=== PATIENT | male | born 1975 | race Caucasian/White ===

== ENCOUNTER 2019-01-13 20:27 | Emergency (ER) | payer OTHER ==
[2019-01-13 20:51] VITALS: TEMP 98.3
[2019-01-13 21:17] LABS: Basophils % (A) 0 %; Eosinophils # (A) 0.2 k/uL (0-0.7); Eosinophils % (A) 3 %; HCT 47.7 % (39.0-53.0); HGB 16.4 gm/dL (13.0-17.5); Lymphocytes # (A) 1.7 k/uL (1.0-4.8); Lymphocytes % (A) 21 %; MCH 30.7 pg (25.0-35.0); MCHC 34.3 g/dL (31.0-37.0); MCV 89.5 fL (80.0-100.0); Mean Platelet Volume 6.6; Monocytes # (A) 0.4 k/uL (0-1.0); Monocytes % (A) 5 %; Neutrophils # (A) 5.6 k/uL (1.3-7.7); Neutrophils % (A) 69 %; Platelet Count 218 k/uL (150-450); RBC 5.33 m/uL (4.30-5.90); RDW 12.3 % (11.5-15.5); WBC 8.2 k/uL (3.8-10.6)
[2019-01-13 21:18] LABS: Appearance,Urine Clear (Clear); Bilirubin,Urine Negative (Negative); Blood,Urine Negative (Negative); Color,Urine Light Yellow; Glucose,Urine (UA) Negative (Negative); Ketones,Urine Negative (Negative); Leukocyte Esterase,Urine Negative (Negative); Nitrite,Urine Negative (Negative); Protein,Urine Negative (Negative); Specific Gravity,Urine 1.006 (1.001-1.035); Urobilinogen,Urine <2.0 mg/dL (<2.0)
[2019-01-13 21:31] LABS: African American GFR (CKD) >90 (>60 ml/min/1.73 sqM); Anion Gap 12 mmol/L; Blood Urea Nitrogen 17 mg/dL (9-20); Calcium 9.9 mg/dL (8.4-10.2); Carbon Dioxide 25 mmol/L (22-30); Chloride 104 mmol/L (98-107); Glucose 141 mg/dL (74-99); Potassium 3.5 mmol/L (3.5-5.1); Sodium 141 mmol/L (137-145)
--- NOTE | 2019-01-13 22:32 | US ---
EXAMINATION TYPE: US scrotum with doppler. Grayscale and color Doppler Duplex imaging performed of the scrotum. DATE OF EXAM: 01/13/2019 COMPARISON: NONE CLINICAL HISTORY: Pain. Pain and swelling left testicle EXAM MEASUREMENTS: TESTICLES: Right Testicle: 5.0 x 2.0 x 3.4 cm Left Testicle: 5.1 x 3.3 x 4.4 cm EPIDIDYMIS HEAD: Right Epididymis: 0.9 cm Left Epididymis: 1.3 cm Doppler performed to assess for testicular vascularity; good bilateral color flow and waveforms are seen. There is no evidence of testicular torsion. Presence of hydroceles: No Presence of varicoceles: No Within the left testicle, there appears to be a hypoechoic vascular mass visualized measuring 4.8 x 3.1 x 4.0 cm. There also appears to be a scrotal genesis measuring 0.7 cm. IMPRESSION: Large hypoechoic vascular mass within the left testis measured 4.8 cm concerning for neoplasm.
--- NOTE | 2019-01-13 23:21 | ED ---
Male Urogenital HPI - General Source: patient Mode of arrival: ambulatory Limitations: no limitations <Yael Burnett - Last Filed: 01/13/19 23:56> <Yenifer Parada - Last Filed: 01/14/19 22:22> - General Chief complaint: Urogenital Stated complaint: Testicular Swelling Time Seen by Provider: 01/13/19 20:57 - History of Present Illness Initial comments: 43-year-old male presents today for chief complaint of left testicular pain. Patient states she has had this pain on and off for the past few years. He st ates has been increasing for the past 2 weeks. He states that he noticed that his left testicle is more swollen than the right for the past 2 weeks. Patient states she was concerned that there is a possible mass. Patient denies any chest pains shorts breath or recent weight loss. Patient has a color changes of the scrotum fever or chills night sweats dysuria urgency frequency or hematuria. Patient states that he was evaluated outpatient by provider who gave patient outpatient urology follow-up. He states he was unable to get an appointment yet and presents emergency department for second opinion. Remaining ROS (-). Upon arrival patient appears well no signs of acute distress. HR elevated patient states he is anxious about he visit. (Yael Burnett) - Related Data Previous Rx's Medication Instructions Recorded Acetaminophen with Codeine 1 tab PO Q6H PRN 3 Days #12 tab 01/13/19 [Tylenol w/codeine #3] Allergies Allergy/AdvReac Type Severity Reaction Status Date / Time No Known Allergies Allergy Verified 01/13/19 21:54 Review of Systems ROS Other: All systems not noted in ROS Statement are negative. <Yael Burnett - Last Filed: 01/13/19 23:56> ROS Other: All systems not noted in ROS Statement are negative. <Yenifer Parada - Last Filed: 01/14/19 22:22> ROS Statement: Those systems with pertinent positive or pertinent negative responses have been documented in the HPI. Past Medical History Past Medical History: No Reported History History of Any Multi-Drug Resistant Organisms: None Reported Additional Past Surgical History / Comment(s): nasal sx Past Psychological History: No Psychological Hx Reported Smoking Status: Never smoker Past Alcohol Use History: Occasional Past Drug Use History: None Reported <HortenciaMarcelinaYael L - Last Filed: 01/13/19 23:56> General Exam Limitations: no limitations <Yael Burnett - Last Filed: 01/13/19 23:56> - General Exam Comments Initial Comments: General: The patient is awake and alert, in no distress, and does not appear acutely ill. Eye: Pupils are equal, round and reactive to light, extra-ocular movements are intact. No nystagmus. There is normal conjunctiva bilaterally. No signs of icterus. Ears, nose, mouth and throat: There are moist mucous membranes and no oral lesions. Neck: The neck is supple, there is no tenderness or JVD. Cardiovascular: There is a regular rate and rhythm. No murmur, rub or gallop is appreciated. Respiratory: Lungs are clear to auscultation, respirations are non-labored, breath sounds are equal. No wheezes, stridor, rales, or rhonchi. Gastrointestinal: Soft, non-distended, non-tender abdomen without masses or organomegaly noted. There is no rebound or guarding present. No CVA tenderness. Bowel sounds are unremarkable. Physical exam reveals for clot. Slight swelling of the left testicle appears with the right. No erythema. No tenderness palpation at the epididymis. Patient has no evidence of varicocele. No obvious palpable mass. Musculoskeletal: Normal ROM, no tenderness. Strength 5/5. Sensation intact. Pulses equal bilaterally 2+. Neurological: A&O x 3. CN II-XII intact, There are no obvious motor or sensory deficits. Coordination appears grossly intact. Speech is normal. Skin: Skin is warm and dry and no rashes or lesions are noted. Psychiatric: Cooperative, appropriate mood & affect, normal judgment. (Yael Burnett) Course Vital Signs 01/13/19 01/13/19 20:46 23:33 Temperature 98.3 F Pulse Rate 115 H 86 Respiratory 20 18 Rate Blood Pressure 175/85 155/74 O2 Sat by Pulse 98 100 Oximetry Medical Decision Making - Lab Data Result diagrams: 01/13/19 21:06 01/13/19 21:06 <aYel Burnett - Last Filed: 01/13/19 23:56> - Lab Data Result diagrams: 01/13/19 21:06 01/13/19 21:06 <Yenifer Parada - Last Filed: 01/14/19 22:22> - Medical Decision Making 43-year-old male presented for left testicular swelling. Ultrasound revealed a testicular mass concerning for possible neoplasm. No evidence of epididymitis hydrocele or varicocele. Patient left wrist that is unremarkable. Urinalysis within normal limits. No evidence of infection. She denies any urinary symptoms. I discussed this finding with patient with concern for possible malignancy versus benign testicular mass. Patient verbalized an understanding of the importance of follow-up with urology. I recommended biopsy. Return parameters were discussed at length the patient. Patient was provided RX for pain medication outpatient. He was aware of the use, risks involvement taking Tylenol No. 3. At this time after discussed the case with attending provider Dr. Parada we for patient stable for discharge with outpatient follow-up as discussed. (Yael Burnett) I was available for consultation in the emergency department. The history and physical exam were done by the midlevel provider. I was consulted for this patient's care. I reviewed the case with the midlevel provider and based on their presentation of the patient, I agree with the assessment, medical decision making and plan of care as documented. Chart was dictated using [employer] dictation software. Attempts were made to correct any dictation errors however some typographical errors may persist. (Yenifer Parada) - Lab Data Lab Results 01/13/19 01/13/19 01/13/19 Range/Units 21:06 21:06 21:06 WBC 8.2 (3.8-10.6) k/uL RBC 5.33 (4.30-5.90) m/uL Hgb 16.4 (13.0-17.5) gm/dL Hct 47.7 (39.0-53.0) % MCV 89.5 (80.0-100.0) fL MCH 30.7 (25.0-35.0) pg MCHC 34.3 (31.0-37.0) g/dL RDW 12.3 (11.5-15.5) % Plt Count 218 (150-450) k/uL Neutrophils % 69 % Lymphocytes % 21 % Monocytes % 5 % Eosinophils % 3 % Basophils % 0 % Neutrophils # 5.6 (1.3-7.7) k/uL Lymphocytes # 1.7 (1.0-4.8) k/uL Monocytes # 0.4 (0-1.0) k/uL Eosinophils # 0.2 (0-0.7) k/uL Basophils # 0.0 (0-0.2) k/uL Sodium 141 (137-145) mmol/L Potassium 3.5 (3.5-5.1) mmol/L Chloride 104 (98-107) mmol/L Carbon Dioxide 25 (22-30) mmol/L Anion Gap 12 mmol/L BUN 17 (9-20) mg/dL Creatinine 0.93 (0.66-1.25) mg/dL Est GFR (CKD-EPI)AfAm >90 (>60 ml/min/1.73 sqM) Est GFR (CKD-EPI)NonAf >90 (>60 ml/min/1.73 sqM) Glucose 141 H (74-99) mg/dL Calcium 9.9 (8.4-10.2) mg/dL Urine Color Light Yellow Urine Appearance Clear (Clear) Urine pH 6.0 (5.0-8.0) Ur Specific [place] 1.006 (1.001-1.035) Urine Protein Negative (Negative) Urine Glucose (UA) Negative (Negative) Urine Ketones Negative (Negative) Urine Blood Negative (Negative) Urine Nitrite Negative (Negative) Urine Bilirubin Negative (Negative) Urine Urobilinogen <2.0 (<2.0) mg/dL Ur Leukocyte Esterase Negative (Negative) Disposition Is patient prescribed a controlled substance at d/c from ED?: No Time of Disposition: 23:20 <Yael Burnett L - Last Filed: 01/13/19 23:56> <Yenifer Parada P - Last Filed: 01/14/19 22:22> Clinical Impression: Testicular swelling, left, Left testicular pain, Mass of left testicle Disposition: HOME SELF-CARE Condition: Good Instructions (If sedation given, give patient instructions): Testicle Pain (ED) Additional Instructions: Please use medication as discussed. Please follow-up with urology in the next 2-3 days. Please return to emergency room if the symptoms increase or worsen or for any other concerns. Prescriptions: Acetaminophen with Codeine [Tylenol w/codeine #3] 1 tab PO Q6H PRN 3 Days #12 tab PRN Reason: Severe Pain Referrals: None,Stated [Primary Care Provider] - 1-2 days London Manning MD [STAFF PHYSICIAN] - 1-2 days
[2019-01-13] MEDS ORDERED: ALPRAZolam 0.5 MG TAB PO STA (23:26)
[2019-01-13 23:36] VITALS: BP 155/74; PULSE 86; RESP 18
== END 2019-01-13 23:43 | disposition home or self-care (01) ==
LOC: EC 20:27
DX: N50.89 Other specified disorders of the male genital organs (principal); N50.812 Left testicular pain; R00.0 Tachycardia, unspecified
CPT/HCPCS: 36415; 76870; 80048; 81003; 85025; 93975; 99284

== ENCOUNTER → 2019-02-10 | Outpatient (CLI) | payer OTHER ==
--- NOTE | 2019-02-11 21:48 | CT ---
EXAMINATION TYPE: CT abdomen pelvis w con DATE OF EXAM: 02/10/2019 COMPARISON: None this location. INDICATION: testicular ca DLP: 1154 mGycm, Automated exposure control for dose reduction was used. CONTRAST: 100 mL of Isovue 300. Study performed with Oral Contrast TECHNIQUE: Axial images were obtained from above the diaphragm to the pubic rami in the axial plane a t 5 mm thick sections. Reconstructed images are reviewed on the computer in the coronal plane. FINDINGS: Limited CT sections are obtained the lung bases. The lung bases are clear. CT ABDOMEN: Liver: Normal Spleen: Normal Pancreas: Normal Adrenal glands: The adrenal glands are normal. Gallbladder: Normal Kidneys: No masses are evident. No hydronephrosis is present. No cysts are present. Delayed images were obtained through the kidneys, which remain unremarkable. Aorta: Vascular calcification is within the aorta. Inferior vena cava: Normal. Lymphadenopathy: There is a few shoddy nodes in the periaortic region bel ow the level of the renal veins. Enlarged suspicious adenopathy is not evident CT PELVIS: Loops of bowel within the abdomen and pelvis are normal. There are loops of bowel which are incom pletely distended or lack oral contrast limiting their evaluation. Appendix: Somewhat enlarged 0.9 cm which can be normal. Otherwise appendix is Normal as visualized. N o suspicious inflammatory changes are adjacent. Urinary bladder: Normal. Genitourinary structures: Prostate is unremarkable. Osseous structures: No suspicious lytic or sclerotic lesions. IMPRESSIONS: 1. No suspicious changes to suggest metastatic disease.
== END | disposition home or self-care (01) ==
LOC: RADCTMAIN 15:58
PROVIDERS: ATTEND Urology
DX: Z08 Encounter for follow-up examination after completed treatment for malignant neoplasm (principal); Z90.79 Acquired absence of other genital organ(s); Z85.47 Personal history of malignant neoplasm of testis
CPT/HCPCS: 74177; Q9967

== ENCOUNTER 2019-03-27 17:07 | Emergency (ER) | payer OTHER ==
[2019-03-27 17:22] VITALS: TEMP 98.2
[2019-03-27 20:55] LABS: Appearance,Urine Clear (Clear); Bilirubin,Urine Negative (Negative); Blood,Urine Negative (Negative); Color,Urine Yellow; Glucose,Urine (UA) Negative (Negative); Ketones,Urine 1+ (Negative); Leukocyte Esterase,Urine Negative (Negative); Nitrite,Urine Negative (Negative); Protein,Urine Negative (Negative); Specific Gravity,Urine 1.018 (1.001-1.035); Urobilinogen,Urine <2.0 mg/dL (<2.0)
--- NOTE | 2019-03-27 21:01 | ED ---
General Adult HPI - General Chief complaint: Extremity Injury, Lower Stated complaint: pain in right groin Time Seen by Provider: 03/27/19 20:17 Source: patient Mode of arrival: ambulatory Limitations: no limitations - History of Present Illness Initial comments: 43-year-old male patient with past medical history significant for left sided testicular cancer presents to the emergency department today for evaluation of right groin pain. Patient states he's had the pain on and off for the last week. Patient states this seems to worsen when he is working. 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 Patient denies any hematuria, dysuria, urinary frequency, urinary urgency. Denies any abdominal pain, nausea, or vomiting. States he is having normal bowel movements with no hematochezia or melena. Patient denies any penile discharge, fever, or chills. Denies any known injury. Patient denies any recent rash, shortness breath, chest pain, back pain, numbness, tingling, dizziness, weakness, headache, visual changes, or any other complaints. - Related Data Home Medications Medication Instructions Recorded Confirmed Ibuprofen [Motrin Ib] 800 mg PO ONCE PRN 03/27/19 03/27/19 Allergies Allergy/AdvReac Type Severity Reaction Status Date / Time No Known Allergies Allergy Verified 03/27/19 20:19 Review of Systems ROS Statement: Those systems with pertinent positive or pertinent negative responses have been documented in the HPI. ROS Other: All systems not noted in ROS Statement are negative. Past Medical History Past Medical History: No Reported History, Cancer Additional Past Medical History / Comment(s): testicle CA History of Any Multi-Drug Resistant Organisms: None Reported Additional Past Surgical History / Comment(s): nasal sx, L testicle removed Past Psychological History: No Psychological Hx Reported Smoking Status: Never smoker Past Alcohol Use History: Occasional Past Drug Use History: None Reported General Exam Limitations: no limitations General appearance: alert, in no apparent distress, other (This is a well- developed, well-nourished adult male patient in no acute distress. Vital signs upon presentation are temperature 98.2F, pulse 127, respirations 18, blood pressure 160/102, pulse ox 98% on room air.) Eye exam: Present: normal appearance, PERRL, EOMI. Absent: scleral icterus, conjunctival injection, periorbital swelling ENT exam: Present: normal exam, normal oropharynx, mucous membranes moist Respiratory exam: Present: normal lung sounds bilaterally. Absent: respiratory distress, wheezes, rales, rhonchi, stridor Cardiovascular Exam: Present: regular rate, normal rhythm, normal heart sounds. Absent: systolic murmur, diastolic murmur, rubs, gallop, clicks GI/Abdominal exam: Present: soft, normal bowel sounds. Absent: distended, tenderness, guarding, rebound, rigid, hernia exam: Present: normal inspection. Absent: testicular tenderness, urethral discharge, scrotal swelling Neurological exam: Present: alert, oriented X3, CN II-XII intact Psychiatric exam: Present: normal affect, normal mood Skin exam: Present: warm, dry, intact, normal color. Absent: rash Course Vital Signs 03/27/19 03/27/19 17:17 21:23 Temperature 98.2 F Pulse Rate 127 H 100 Respiratory 18 14 Rate Blood Pressure 160/102 156/95 O2 Sat by Pulse 98 98 Oximetry Medical Decision Making - Medical Decision Making 43-year-old male patient presented to the emergency department today for evaluation of right groin pain. Physical examination revealed no tenderness, swelling, or other abnormalities. Urinalysis showed 2+ ketones but no other abnormalities. Ultrasound of the right groin and showed him which are unremarkable except for a 3 mm right epididymal cyst. I did discuss findings and results with the patient. We discussed possible strain as a cause for his symptoms. He does have an appointment with his urologist this week. He is instructed to follow-up with his primary care physician for recheck in 1-2 days. Return parameters were discussed in detail. He verbalizes understanding and agrees this plan. - Lab Data Lab Results 03/27/19 Range/Units 20:43 Urine Color Yellow Urine Appearance Clear (Clear) Urine pH 7.0 (5.0-8.0) Ur Specific [place] 1.018 (1.001-1.035) Urine Protein Negative (Negative) Urine Glucose (UA) Negative (Negative) Urine Ketones 1+ H (Negative) Urine Blood Negative (Negative) Urine Nitrite Negative (Negative) Urine Bilirubin Negative (Negative) Urine Urobilinogen <2.0 (<2.0) mg/dL Ur Leukocyte Esterase Negative (Negative) - Radiology Data Radiology results: report reviewed, image reviewed Ultrasound of the scrotum was obtained. Report reviewed in its entirety. Impression by Dr. Delgado shows no evidence of testicular torsion or mass. No significant free fluid. Small epididymal 3 mm cyst. Ultrasound of the right groin is obtained. Report was reviewed in its entirety. Impression by Dr. Delgado shows few ordinary appearing right inguinal lymph nodes. Disposition Clinical Impression: Right groin pain, Epididymal cyst Disposition: HOME SELF-CARE Condition: Good Instructions (If sedation given, give patient instructions): Groin Pain (ED) Additional Instructions: Take Tylenol and Motrin for pain control. Follow-up with your urologist as you have planned. Follow up with her primary care physician for recheck in 1-2 days. Return to the emergency department immediately for any new, worsening, or concerning symptoms. Is patient prescribed a controlled substance at d/c from ED?: No Referrals: Thanh Desouza MD [STAFF PHYSICIAN] - 1-2 days Time of Disposition: 22:02
[2019-03-27 21:24] VITALS: RESP 14
--- NOTE | 2019-03-27 21:35 | US ---
EXAMINATION TYPE: US scrotum with doppler. Grayscale and color Doppler Duplex imaging performed of maycol colon scrotum. DATE OF EXAM: 03/27/2019 COMPARISON: US, CT CLINICAL HISTORY: Pain. Pain right groin/testicle x 1.5 weeks. Hx left testicle removed 3 months ago. Hx testicular cancer. EXAM MEASUREMENTS: TESTICLES: Right Testicle: 4.7 x 3.2 x 2.8 cm Left Testicle: Removed EPIDIDYMIS HEAD: Right Epididymis: 1.2 x 1.1 x 0.7 cm Anechoic area seen measurin.3 x 0.4 x 0.3 cm. Doppler performed to assess for testicular vascularity; good right-sided color flow and waveforms are seen. There is no evidence of testicular torsion. Presence of hydroceles: Small amount of anechoic fluid seen near epididymal head. Presence of varicoceles: none seen ?Hypoechoic area right lower testicle appears to be part of epididymal tail? Color Doppler shown. Ind istinct area was not measured. IMPRESSION: No evidence of testicular torsion or mass. No significant free fluid. Small epididymal 3 mm cyst.
--- NOTE | 2019-03-27 21:36 | US ---
EXAMINATION TYPE: US groin RT DATE OF EXAM: 03/27/2019 COMPARISON: US CLINICAL HISTORY: Pain. Pain right groin x 1.5 weeks. Hx left testicle removed. Hx testicular cancer. Multiple hypoechoic areas with hyperechoic centers and vascularity seen in the right groin. Largest measured. #1 measures: 1.2 x 1.3 x 0.6 cm. #2 measures: 1.3 x 0.7 x 0.4 cm. IMPRESSION: There are a few ordinary appearing right inguinal lymph nodes.
[2019-03-27 22:19] VITALS: BP 148/90; PULSE 90
== END 2019-03-27 22:09 | disposition home or self-care (01) ==
LOC: EC 17:07
DX: N50.3 Cyst of epididymis (principal); Z85.47 Personal history of malignant neoplasm of testis
CPT/HCPCS: 76870; 81003; 93975; 93976; 99284

== ENCOUNTER → 2019-04-18 | Outpatient (CLI) | payer OTHER ==
--- NOTE | 2019-04-18 13:24 | CT ---
EXAMINATION TYPE: CT abdomen pelvis wo/w con DATE OF EXAM: 04/18/2019 COMPARISON: 02/10/2019 HISTORY: 43-year-old male Testicular cancer TECHNIQUE: Contiguous axial scanning of the abdomen and pelvis before and after administration of 100 ml Isovue 300 IV contrast. Delayed images through the kidneys and coronal/sagittal reconstructions performed. CT DLP: 1981 mGycm Automated exposure control for dose reduction was used. FINDINGS: Heart normal size without pericardial effusion. Lung bases clear without pleural effusion. No focal liver lesion or biliary ductal dilatation. Portal venous system is patent. Gallbladder, adrenal glands, right kidney, spleen, and pancreas appear within normal limits. Subcentimeter hypodensity lateral left kidney too small fractured CT characterization, probable cyst. 8mm left periaortic retroperitoneal lymph node, axial image 35 is unchanged. Prominent 6 mm mid mesen teric lymph node anterior to the aortic bifurcation, axial image 48 is unchanged. No dilated small bowel, free fluid, or free air. Stable borderline thickened appendix likely normal variation. No surrounding inflammatory change. Oral contrast progressed to the rectosigmoid junction. No pericolonic inflammatory change. Bladder is urine distended. Resting gland measures 4.8 cm wide. No abnormal fluid collection in the p leatha or pelvic lymphadenopathy. Some scarring along the left inguinal region and prior left orchiect erin. Bones: No osseous destructive process. Degenerative disc disease L5-S1. IMPRESSION: 1. A COUPLE BORDERLINE SIZED LYMPH NODES IN THE ABDOMEN (LEFT PARA-AORTIC AND MID MESENTERIC) ARE STA BLE FOR 2 MONTHS MEASURING UP TO 8 MM. ADDITIONAL FOLLOW-UP IF CLINICALLY INDICATED. 2. POST SURGICAL CHANGES OF LEFT ORCHIECTOMY. OTHERWISE, NO OTHER EVIDENCE FOR METASTATIC DISEASE.
== END | disposition home or self-care (01) ==
LOC: RADCTMAIN 09:34
PROVIDERS: ATTEND Radiology Radiation Oncology
DX: R22.2 Localized swelling, mass and lump, trunk (principal); C62.12 Malignant neoplasm of descended left testis; Z98.890 Other specified postprocedural states
CPT/HCPCS: 74178; Q9967

== ENCOUNTER → 2019-08-18 | Outpatient (CLI) | payer OTHER ==
--- NOTE | 2019-08-18 12:33 | XR ---
EXAMINATION TYPE: XR chest 2V DATE OF EXAM: 08/18/2019 COMPARISON: NONE HISTORY: Testicular cancer. TECHNIQUE: Frontal and lateral views of the chest are obtained. FINDINGS: There is no focal air space opacity, pleural effusion, or pneumothorax seen. The cardiac silhouette size is within normal limits. The osseous structures are intact. Minimal multilevel dege nerative change of the spine. IMPRESSION: No acute cardiopulmonary process.
--- NOTE | 2019-08-18 16:38 | CT ---
EXAMINATION TYPE: CT abdomen pelvis w con DATE OF EXAM: 08/18/2019 COMPARISON: 04/18/2019 INDICATION: Follow up testicular cancer. DLP: 678.4 mGycm, Automated exposure control for dose reduction was used. CONTRAST: 100 mL of Isovue 300. Study performed with Oral Contrast TECHNIQUE: Axial images were obtained from above the diaphragm to the pubic rami in the axial plane a t 5 mm thick sections. Reconstructed images are reviewed on the computer in the coronal plane. FINDINGS: Limited CT sections are obtained the lung bases. The lung bases are clear. CT ABDOMEN: Liver: Normal Spleen: Normal Pancreas: Normal Adrenal glands: The adrenal glands are normal. Gallbladder: Normal Kidneys: No masses are evident. No hydronephrosis is present. Small cortical renal cyst on the left Delayed images were obtained through the kidneys, which remain unremarkable. Aorta: Normal Inferior vena cava: Normal. CT PELVIS: Loops of bowel within the abdomen and pelvis are normal. Diverticular changes within the sigmoid colo n. There are loops of bowel which are incompletely distended or lack oral contrast limiting their evaluation. Appendix: Not visualized measures 0.9 cm however, no suspicious adjacent inflammatory change.. Urinary bladder: Normal. Genitourinary structures: Prostate is prominent Osseous structures: No suspicious lytic or sclerotic lesions. Lymph nodes: There is a 0.9 cm lymph node near the level of the renal veins, stable from comparison. Image 33 series 3 couple of additional smaller shotty lymph nodes are present similar appearance to p rior study IMPRESSIONS: 1. Diverticulosis without acute diverticulitis. 2. Prominent prostate. 3. Prominent but otherwise normal-appearing appendix. 4. No suspicious interval changes to suggest metastatic testicular cancer.
== END | disposition home or self-care (01) ==
LOC: RADCTMAIN 10:38
PROVIDERS: ATTEND Urology
DX: C62.12 Malignant neoplasm of descended left testis (principal); K57.30 Diverticulosis of large intestine without perforation or abscess without bleeding
CPT/HCPCS: 71046; 74177; Q9967 ×2

== ENCOUNTER 2019-08-28 09:14 | Day surgery (SDC) | payer OTHER ==
[~2019-08-28 09:14] MED LIST: LACTATED RINGERS 1,000 ML IV SCH
[2019-08-28 09:35] VITALS: RESP 16; TEMP 98.1
[2019-08-28] MEDS: LACTATED RINGERS 1,000 ML IV SCH ×2 (09:38→09:58)
[2019-08-28] MEDS ORDERED: LIDOCAINE 1% 20 ML VIAL (10MG/ML) FOR IV START INTRADERMA ONE (09:39)
[2019-08-28] MEDS ORDERED: fentaNYL (PF) 50 MCG/ML 2 ML AMP ONE (09:59)
[2019-08-28] MEDS ORDERED: PROPOFOL 10 MG/ML 20 ML VIAL IV ONE (09:59)
[2019-08-28] MEDS ORDERED: MIDAZOLAM 2 MG/2 ML VIAL ONE (09:59)
--- NOTE | 2019-08-28 10:31 | P.PCN ---
Date of Procedure: 08/28/19 Description of Procedure: BRIEF HISTORY: Patient is a 43-year-old male who presented for outpatient EGD for evaluation of symptoms of reflux. Patient has been experiencing control reflux in the office for he was started on medications for treatment of his symptoms. He is here for follow-up. PROCEDURE PERFORMED: Esophagogastroduodenoscopy with biopsy. PREOPERATIVE DIAGNOSIS: GERD. ESTIMATED BLOOD LOSS: Minimal. IV sedation per anesthesia. PROCEDURE: After informed consent was obtained, the patient was brought into the endoscopy unit. IV sedation was administered by Anesthesia under continuous monitoring. Initially the Olympus GIF-190 video endoscope was inserted into the mouth. Esophagus intubated without any difficulty. It was gradually advanced into the stomach and duodenum and carefully examined. The bulb and the second part of the duodenum appeared normal, with biopsies taken to rule out celiac sprue. The scope at this time was withdrawn to the stomach, adequately insufflated with air, and upon careful examination, mucosa of the antrum, body, cardia and the fundus appeared normal, except for mild scattered erythema in the antrum and body suggestive of mild gastritis with biopsies taken. The scope was then withdrawn into the esophagus. The GE junction was located at 39 cm from the incisors. The esophagus appeared normal, with biopsies of GE junction taken to rule out reflux esophagitis. There were no erosions or ulcerations seen and the patient tolerated the procedure well. IMPRESSION: 1. Mild gastritis antrum and body, biopsied. 2. Biopsies of the duodenum and GE junction. RECOMMENDATIONS: The findings of this examination were discussed with the patient. Okay to resume diet. Okay to resume medications. Await pathology from biopsies. Follow up in gastroenterology clinic as previously scheduled..
[2019-08-28 10:55] VITALS: BP 150/86; PULSE 90
== END 2019-08-28 11:03 | disposition home or self-care (01) ==
LOC: ORWHC2ENDO 09:14
PROVIDERS: ATTEND Internal Medicine
DX: K21.9 Gastro-esophageal reflux disease without esophagitis (principal); K29.50 Unspecified chronic gastritis without bleeding; Z79.1 Long term (current) use of non-steroidal anti-inflammatories (NSAID); Z79.899 Other long term (current) drug therapy
CPT/HCPCS: 88305; 43239; J2250; J3010; J2704

== ENCOUNTER → 2020-01-26 | Outpatient (CLI) | payer OTHER ==
--- NOTE | 2020-01-28 19:20 | XR ---
EXAMINATION TYPE: XR chest 2V DATE OF EXAM: 01/26/2020 COMPARISON: 08/18/2019 HISTORY: 44-year-old male C62.12, testicular cancer TECHNIQUE: Frontal and lateral views FINDINGS: The cardiomediastinal silhouette, aorta, and pulmonary vasculature are within normal limits. Mild int erstitial prominence is unchanged. Lungs and pleural spaces are clear. IMPRESSION: No acute cardiopulmonary process.
--- NOTE | 2020-01-28 20:17 | CT ---
EXAMINATION TYPE: CT abdomen pelvis w con DATE OF EXAM: 01/26/2020 COMPARISON: 08/18/2019 HISTORY: 44-year-old male Testicular cancer. TECHNIQUE: Contiguous axial scanning of the abdomen and pelvis following administration of 100 ml Iso sebastián 300 IV contrast. Delayed images through the kidneys and coronal/sagittal reconstructions perform ed. CT DLP: 786.2 mGycm Automated exposure control for dose reduction was used. FINDINGS: Heart normal size without pericardial effusion. Lung bases clear without pleural effusion. No focal liver lesion or biliary ductal dilatation. Portal venous system is patent. Gallbladder, adrenal glands, kidneys, spleen, and pancreas appear within normal limits. A few borderline sized retroperitoneal lymph nodes in the left paraaortic region measuring up to 8 mm are unchanged. A few scattered nonenlarged and borderline to mildly enlarged mesenteric lymph nodes measuring up to 9 mm, refer to coronal image 32 are also unchanged. No progressive lymphadenopathy is identified. No dilated small bowel, free fluid, or free air. Mild stool burden. No pericolonic inflammatory change. Prostate gland measures 5.5 cm wide. Postsurgical changes along the left inguinal region from right o r left orchiectomy. No abnormal fluid collection in the pelvis or pelvic lymphadenopathy. Bones: Degenerative disc disease L5-S1. No osseous destructive process. IMPRESSION: 1. A FEW SCATTERED NONENLARGED AND BORDERLINE TO MILDLY ENLARGED ABDOMINAL LYMPH NODES (MEASURING UP TO 9 MM MID MESENTERIC AND 8 MM LEFT PARA-AORTIC) ARE UNCHANGED AND MAY BE REACTIVE/POST INFLAMMATORY . 2. NO SUSPICIOUS PROGRESSIVE LYMPHADENOPATHY IS IDENTIFIED. 3. STABLE PROSTATOMEGALY AT 5.5 CM WIDE.
== END | disposition home or self-care (01) ==
LOC: RADCTMAIN 16:48
PROVIDERS: ATTEND Urology
DX: R59.0 Localized enlarged lymph nodes (principal); C62.12 Malignant neoplasm of descended left testis; N40.0 Benign prostatic hyperplasia without lower urinary tract symptoms
CPT/HCPCS: 82105; 71046; 74177; 36415; Q9967; 84702

== ENCOUNTER 2020-05-23 17:15 | Observation (INO) | payer OTHER ==
[2020-05-23 18:06] LABS: Amorphous Sediment,Urine Few /hpf; Appearance,Urine Cloudy (Clear); Bilirubin,Urine Negative (Negative); Blood,Urine Negative (Negative); Color,Urine Yellow; Glucose,Urine (UA) Negative (Negative); Ketones,Urine Negative (Negative); Leukocyte Esterase,Urine Negative (Negative); Mucus,Urine Rare /hpf; Nitrite,Urine Negative (Negative); PH, Urine 7.5 (5.0-8.0); Protein,Urine Negative (Negative); Specific Gravity,Urine 1.024 (1.001-1.035); Urobilinogen,Urine <2.0 mg/dL (<2.0); WBC,Urine <1 /hpf (0-5)
[2020-05-23 18:33] LABS: Basophils # (A) 0.1 k/uL (0-0.2); Basophils % (A) 1 %; Eosinophils # (A) 0.1 k/uL (0-0.7); Eosinophils % (A) 2 %; HCT 47.2 % (39.0-53.0); HGB 16.7 gm/dL (13.0-17.5); Lymphocytes # (A) 1.2 k/uL (1.0-4.8); Lymphocytes % (A) 17 %; MCH 31.8 pg (25.0-35.0); MCHC 35.3 g/dL (31.0-37.0); Monocytes # (A) 0.4 k/uL (0-1.0); Monocytes % (A) 6 %; Neutrophils # (A) 5.2 k/uL (1.3-7.7); Neutrophils % (A) 73 %; Platelet Count 191 k/uL (150-450); RBC 5.25 m/uL (4.30-5.90); RDW 11.7 % (11.5-15.5); WBC 7.2 k/uL (3.8-10.6)
[2020-05-23 18:46] LABS: ALT 29 U/L (4-49); AST 29 U/L (17-59); African American GFR (CKD) >90 (>60 ml/min/1.73 sqM); Albumin 5.2 g/dL (3.5-5.0); Alkaline Phosphatase 45 U/L (38-126); Anion Gap 7 mmol/L; Blood Urea Nitrogen 21 mg/dL (9-20); Calcium 9.9 mg/dL (8.4-10.2); Carbon Dioxide 27 mmol/L (22-30); Chloride 106 mmol/L (98-107); Glucose 108 mg/dL (74-99); Non-African American GFR(CKD) >90 (>60 ml/min/1.73 sqM); Potassium 4.1 mmol/L (3.5-5.1); Sodium 140 mmol/L (137-145); Total Bilirubin 0.5 mg/dL (0.2-1.3); Total Protein 8.3 g/dL (6.3-8.2)
--- NOTE | 2020-05-23 20:12 | CT ---
EXAMINATION TYPE: CT abdomen pelvis w con DATE OF EXAM: 05/23/2020 COMPARISON: 01/26/2020 HISTORY: RLQ pain. Hx testicular ca, Lt side sx removed. Isovue CT DLP: 1008 mGycm Automated exposure control for dose reduction was used. TECHNIQUE: Helical acquisition of images was performed from the lung bases through the pelvis. CONTRAST: Performed without Oral Contrast and with IV Contrast, patient injected with 100 mL of Isovu e 300. FINDINGS: LUNG BASES: No significant abnormality is appreciated. LIVER/GB: No significant abnormality is appreciated. PANCREAS: No significant abnormality is seen. SPLEEN: No significant abnormality is seen. ADRENALS: No significant abnormality is seen. KIDNEYS: No significant abnormality is seen. FREE AIR: No free air is visualized. RETROPERITONEAL ADENOPATHY: None visualized REPRODUCTIVE ORGANS: No significant abnormality is seen URINARY BLADDER: No significant abnormality is seen. PELVIC ADENOPATHY: None visualized. OSSEOUS STRUCTURES: No significant abnormality is seen. BOWEL: There is no bowel obstruction. The appendix has low attenuation within its lumen and measures 11 mm caliber (top normal 6 mm caliber). On the prior study measured approximately 8 mm caliber but did not demonstrate the low density within its lumen. There is only subtle periappendiceal edematous reticulation present. No associated reactive lymph nodes are evident. No definite asymmetric thickeni ng/indistinctness of the right lateral conal fascia. The appendix findings can correlate with a clini nabila diagnosis of noncomplicated appendicitis. The cecum is positioned at the level of the superior il iac crest and the appendix is retrocecal. OTHER: No acute vascular findings. IMPRESSION: FINDINGS CONSISTENT WITH A CLINICAL DIAGNOSIS OF ACUTE APPENDICITIS, DISCUSSED.
[2020-05-23] MEDS ORDERED: PIPERACILLIN-TAZOBACTAM 3.375 GM in SODIUM CHLORIDE 0.9% 100 ML IVPB STA (20:13)
[2020-05-23] MEDS ORDERED: ONDANSETRON 4 MG/2 ML VIAL IVP PRN (20:15)
--- NOTE | 2020-05-23 20:15 | ED ---
Abdominal Pain HPI - General Chief Complaint: Abdominal Pain Stated Complaint: Abd Pain Time Seen by Provider: 05/23/20 17:31 Source: patient Mode of arrival: ambulatory Limitations: no limitations - History of Present Illness Initial Comments: 44-year-old male presenting today for chief complaint of low back pain. Patient states she has had low back pain for the past month he states he has had some abdominal pain today he states it is hard to localize. He states is a lower abdomen. Patient denies any nausea vomiting fevers. He states he has some difficulty starting stream denies any testicular pain he states he does have history of testicular cancer. Patient dneies hematuria or history of kidney stones. Denies additional complaints. - Related Data Home Medications Medication Instructions Recorded Confirmed No Known Home Medications 05/23/20 05/23/20 Allergies Allergy/AdvReac Type Severity Reaction Status Date / Time No Known Allergies Allergy Verified 05/23/20 19:58 Review of Systems ROS Statement: Those systems with pertinent positive or pertinent negative responses have been documented in the HPI. ROS Other: All systems not noted in ROS Statement are negative. Past Medical History Past Medical History: No Reported History, Cancer, GERD/Reflux Additional Past Medical History / Comment(s): testicle CA History of Any Multi-Drug Resistant Organisms: None Reported Additional Past Surgical History / Comment(s): nasal sx, L testicle removed Past Anesthesia/Blood Transfusion Reactions: No Reported Reaction Past Psychological History: No Psychological Hx Reported Smoking Status: Current some day smoker Past Alcohol Use History: Occasional Past Drug Use History: None Reported General Exam - General Exam Comments Initial Comments: General: The patient is awake and alert, in no distress Eye: Pupils are equal, round and reactive to light, extra-ocular movements are intact. No nystagmus. There is normal conjunctiva bilaterally. No signs of icterus. Ears, nose, mouth and throat: There are moist mucous membranes and no oral lesions. Neck: The neck is supple, there is no tenderness or JVD. Cardiovascular: There is a regular rate and rhythm. No murmur, rub or gallop is appreciated. Respiratory: Lungs are clear to auscultation, respirations are non-labored, breath sounds are equal. No wheezes, stridor, rales, or rhonchi. Gastrointestinal: Soft, non-distended, non-tender abdomen without masses or organomegaly noted. There is no rebound or guarding present. Musculoskeletal: Normal ROM, no tenderness. Strength 5/5. Sensation intact. Pulses equal bilaterally 2+. Neurological: A&O x 3. CN II-XII intact grossly, There are no obvious motor or sensory deficits. Coordination appears grossly intact. Speech is normal. Skin: Skin is warm and dry and no rashes or lesions are noted. Psychiatric: Cooperative, appropriate mood & affect, normal judgment. Limitations: no limitations Course Vital Signs 05/23/20 05/23/20 17:26 21:00 Temperature 97.1 F L 98.1 F Pulse Rate 102 H 88 Respiratory 18 18 Rate Blood Pressure 159/95 131/79 O2 Sat by Pulse 98 97 Oximetry Medical Decision Making - Medical Decision Making CT + appendicitis. Zosyn initiated. Patient evaluated by attending. pt has minimal to no abdominal pain on exams. Patient labs stable does not apears toxic. will be admitted to surgery for appendectomy tomorrow. NPO after midnight. [facility] accepted. - Lab Data Result diagrams: 05/23/20 18:20 05/23/20 18:20 Lab Results 05/23/20 05/23/20 05/23/20 Range/Units 17:46 18:20 18:20 WBC 7.2 (3.8-10.6) k/uL RBC 5.25 (4.30-5.90) m/uL Hgb 16.7 (13.0-17.5) gm/dL Hct 47.2 (39.0-53.0) % MCV 90.0 (80.0-100.0) fL MCH 31.8 (25.0-35.0) pg MCHC 35.3 (31.0-37.0) g/dL RDW 11.7 (11.5-15.5) % Plt Count 191 (150-450) k/uL Neutrophils % 73 % Lymphocytes % 17 % Monocytes % 6 % Eosinophils % 2 % Basophils % 1 % Neutrophils # 5.2 (1.3-7.7) k/uL Lymphocytes # 1.2 (1.0-4.8) k/uL Monocytes # 0.4 (0-1.0) k/uL Eosinophils # 0.1 (0-0.7) k/uL Basophils # 0.1 (0-0.2) k/uL Sodium 140 (137-145) mmol/L Potassium 4.1 (3.5-5.1) mmol/L Chloride 106 (98-107) mmol/L Carbon Dioxide 27 (22-30) mmol/L Anion Gap 7 mmol/L BUN 21 H (9-20) mg/dL Creatinine 0.96 (0.66-1.25) mg/dL Est GFR (CKD-EPI)AfAm >90 (>60 ml/min/1.73 sqM) Est GFR (CKD-EPI)NonAf >90 (>60 ml/min/1.73 sqM) Glucose 108 H (74-99) mg/dL Calcium 9.9 (8.4-10.2) mg/dL Total Bilirubin 0.5 (0.2-1.3) mg/dL AST 29 (17-59) U/L ALT 29 (4-49) U/L Alkaline Phosphatase 45 (38-126) U/L Total Protein 8.3 H (6.3-8.2) g/dL Albumin 5.2 H (3.5-5.0) g/dL Urine Color Yellow Urine Appearance Cloudy (Clear) Urine pH 7.5 (5.0-8.0) Ur Specific [place] 1.024 (1.001-1.035) Urine Protein Negative (Negative) Urine Glucose (UA) Negative (Negative) Urine Ketones Negative (Negative) Urine Blood Negative (Negative) Urine Nitrite Negative (Negative) Urine Bilirubin Negative (Negative) Urine Urobilinogen <2.0 (<2.0) mg/dL Ur Leukocyte Esterase Negative (Negative) Urine WBC <1 (0-5) /hpf Amorphous Sediment Few H (None) /hpf Urine Mucus Rare H (None) /hpf Disposition Clinical Impression: Appendicitis Disposition: ADMITTED IP TO THIS HOSP Condition: Stable Is patient prescribed a controlled substance at d/c from ED?: No Referrals: None,Stated [Primary Care Provider] - 1-2 days Time of Disposition: 20:15 Decision to Admit Reason: Admit from EC Decision Date: 05/23/20 Decision Time: 20:15
[2020-05-23] MEDS ORDERED: NALOXONE 0.4 MG/ML 1 ML VIAL IV PRN (20:16)
[2020-05-23] MEDS: SODIUM CHLORIDE 0.9% 1,000 ML IV SCH (20:46)
[2020-05-23] MEDS: MORPHINE SULFATE 2 MG/ML SYRINGE IVP PRN (20:55)
[2020-05-24] MEDS ORDERED: PIPERACILLIN-TAZOBACTAM 3.375 GM in SODIUM CHLORIDE 0.9% 100 ML IVPB SCH ×2
[2020-05-24] MEDS: MORPHINE SULFATE 2 MG/ML SYRINGE IVP PRN (00:19)
[2020-05-24] MEDS ORDERED: HYDROmorphone 1 MG/ML 1 ML SYRINGE IVP PRN (02:32)
[2020-05-24] MEDS: ACETAMINOPHEN IV (For NPO) 1,000 MG in EMPTY BAG 1 BAG IVPB SCH ×3 (03:20→16:21)
[2020-05-24] MEDS: PIPERACILLIN-TAZOBACTAM 3.375 GM in SODIUM CHLORIDE 0.9% 100 ML IVPB SCH ×2 (05:46→16:34)
[2020-05-24] MEDS: SODIUM CHLORIDE 0.9% 1,000 ML IV SCH ×2 (08:44→16:34)
--- NOTE | 2020-05-24 09:25 | P.GSHP ---
<Maria D Ford - Last Filed: 05/24/20 09:16> History of Present Illness H&P Date: 05/24/20 CHIEF COMPLAINT: Right lower back pain and abdominal pain HISTORY OF PRESENT ILLNESS: This is a 44-year-old male with a known history of testicular cancer status post removal of left testicle. Patient reports that he has been having right-sided lower back pain and lower abdomen pain intermittently over the last month. Patient came into the emergency room With complaints of increasing in his right lower and lower back abdominal pain. He was rating his pain 10 out of 10. It was severe and sharp. He also admits to having some chills. He denies any fever. She also is having some urinary frequency and urinating only small amounts. This appears to have resolved through the night. Patient has been placed on IV antibiotics and IV fluids. His pain is controlled with pain medication. Computed tomography scan Of abdome n and pelvis show findings consistent with clinical diagnosis of acute appendicitis. PAST MEDICAL HISTORY: See list. PAST SURGICAL HISTORY: See list. MEDICATIONS: See list. ALLERGIES: See list. SOCIAL HISTORY: No illicit drug use. REVIEW OF SYSTEMS: CONSTITUTIONAL: Denies fever or chills. HEENT: Denies blurred vision, vision changes, or eye pain. Denies hemoptysis CARDIOVASCULAR: Denies chest pain or pressure. RESPIRATORY: No shortness of breath. GASTROINTESTINAL: See HPI for pertinent findings HEMATOLOGIC: Denies bleeding disorders. GENITOURINARY: Denies any blood in urine or increased urinary frequency. SKIN: Denies pruitis. Denies rash. PHYSICAL EXAM: VITAL SIGNS: Reviewed GENERAL: Well-developed in no acute distress. HEENT: No sclera icterus. Extraocular movements grossly intact. Moist buccal mucosa. Head is atraumatic, normocephalic. No nasal drainage. ABDOMEN: Soft. Nondistended. nontender NEUROLOGIC: Alert and oriented. Cranial nerves II through XII grossly intact. LABORATORY DATA: WBC 7.2 he will 16.7 BUN 21 and 0.96 UA negative IMAGING: Computed tomography scan Of abdomen and pelvis show findings consistent with clinical diagnosis of acute appendicitis. ASSESSMENT: 1. Acute appendicitis with intermittent right lower quadrant abdominal pain PLAN: -Patient is scheduled for Laparoscopic, possible open appendectomy With Dr. Harris today -Keep patient nothing by mouth -Continue IV Zosyn -Continue IV fluids -Continue pain medication Physician Ham Stripper note has been reviewed by physician. Signing provider agrees with the documented findings, assessment, and plan of care. Past Medical History Past Medical History: No Reported History, Cancer, GERD/Reflux Additional Past Medical History / Comment(s): testicle CA History of Any Multi-Drug Resistant Organisms: None Reported Additional Past Surgical History / Comment(s): nasal sx, L testicle removed Past Anesthesia/Blood Transfusion Reactions: No Reported Reaction Past Psychological History: No Psychological Hx Reported Smoking Status: Never smoker Past Alcohol Use History: Occasional Past Drug Use History: None Reported Medications and Allergies Home Medications Medication Instructions Recorded Confirmed Type No Known Home Medications 05/23/20 05/23/20 History Allergies Allergy/AdvReac Type Severity Reaction Status Date / Time No Known Allergies Allergy Verified 05/24/20 13:30 Surgical - Exam Vital Signs Temp Pulse Resp BP Pulse Ox 97.1 F L 102 H 18 159/95 98 05/23/20 17:26 05/23/20 17:26 05/23/20 17:26 05/23/20 17:26 05/23/20 17:26 Results - Labs 05/23/20 18:20 05/23/20 18:20 Abnormal Lab Results - Last 24 Hours (Table) 05/23/20 05/23/20 Range/Units 17:46 18:20 BUN 21 H (9-20) mg/dL Glucose 108 H (74-99) mg/dL Total Protein 8.3 H (6.3-8.2) g/dL Albumin 5.2 H (3.5-5.0) g/dL Amorphous Sediment Few H (None) /hpf Urine Mucus Rare H (None) /hpf Diabetes panel 05/23/20 Range/Units 18:20 Sodium 140 (137-145) mmol/L Potassium 4.1 (3.5-5.1) mmol/L Chloride 106 (98-107) mmol/L Carbon Dioxide 27 (22-30) mmol/L BUN 21 H (9-20) mg/dL Creatinine 0.96 (0.66-1.25) mg/dL Glucose 108 H (74-99) mg/dL Calcium 9.9 (8.4-10.2) mg/dL AST 29 (17-59) U/L ALT 29 (4-49) U/L Alkaline Phosphatase 45 (38-126) U/L Total Protein 8.3 H (6.3-8.2) g/dL Albumin 5.2 H (3.5-5.0) g/dL Calcium panel 05/23/20 Range/Units 18:20 Calcium 9.9 (8.4-10.2) mg/dL Albumin 5.2 H (3.5-5.0) g/dL Pituitary panel 05/23/20 Range/Units 18:20 Sodium 140 (137-145) mmol/L Potassium 4.1 (3.5-5.1) mmol/L Chloride 106 (98-107) mmol/L Carbon Dioxide 27 (22-30) mmol/L BUN 21 H (9-20) mg/dL Creatinine 0.96 (0.66-1.25) mg/dL Glucose 108 H (74-99) mg/dL Calcium 9.9 (8.4-10.2) mg/dL Adrenal panel 05/23/20 Range/Units 18:20 Sodium 140 (137-145) mmol/L Potassium 4.1 (3.5-5.1) mmol/L Chloride 106 (98-107) mmol/L Carbon Dioxide 27 (22-30) mmol/L BUN 21 H (9-20) mg/dL Creatinine 0.96 (0.66-1.25) mg/dL Glucose 108 H (74-99) mg/dL Calcium 9.9 (8.4-10.2) mg/dL Total Bilirubin 0.5 (0.2-1.3) mg/dL AST 29 (17-59) U/L ALT 29 (4-49) U/L Alkaline Phosphatase 45 (38-126) U/L Total Protein 8.3 H (6.3-8.2) g/dL Albumin 5.2 H (3.5-5.0) g/dL <Олег Harris - Last Filed: 05/24/20 14:06> History of Present Illness As above. Patient with right lower abdominal pain with radiation to the right flank. This is been going on and off for the last 1 month. CAT scan reviewed and does demonstrate a dilated appendix at 11 mm. Some vague inflammatory changes thought to be present. Patient's pain is better today however was 10 out of 10 last night. No history of kidney stones. Urinalysis clear. We'll proceed with laparoscopic appendectomy, possible open appendectomy. Will evaluate what we can see of the right side of the abdomen intraoperatively as well. Risks of bleeding, infection, abscess, scarring, hernia, conversion to an open procedure, persistent pain, possible need for further procedures reviewed. He understands and wishes to proceed. Surgical - Exam Vital Signs Temp Pulse Resp BP Pulse Ox 97.1 F L 102 H 18 159/95 98 05/23/20 17:26 05/23/20 17:26 05/23/20 17:26 05/23/20 17:26 05/23/20 17:26 Results - Labs 05/23/20 18:20 05/23/20 18:20 Abnormal Lab Results - Last 24 Hours (Table) 05/23/20 05/23/20 Range/Units 17:46 18:20 BUN 21 H (9-20) mg/dL Glucose 108 H (74-99) mg/dL Total Protein 8.3 H (6.3-8.2) g/dL Albumin 5.2 H (3.5-5.0) g/dL Amorphous Sediment Few H (None) /hpf Urine Mucus Rare H (None) /hpf Diabetes panel 05/23/20 Range/Units 18:20 Sodium 140 (137-145) mmol/L Potassium 4.1 (3.5-5.1) mmol/L Chloride 106 (98-107) mmol/L Carbon Dioxide 27 (22-30) mmol/L BUN 21 H (9-20) mg/dL Creatinine 0.96 (0.66-1.25) mg/dL Glucose 108 H (74-99) mg/dL Calcium 9.9 (8.4-10.2) mg/dL AST 29 (17-59) U/L ALT 29 (4-49) U/L Alkaline Phosphatase 45 (38-126) U/L Total Protein 8.3 H (6.3-8.2) g/dL Albumin 5.2 H (3.5-5.0) g/dL Calcium panel 05/23/20 Range/Units 18:20 Calcium 9.9 (8.4-10.2) mg/dL Albumin 5.2 H (3.5-5.0) g/dL Pituitary panel 05/23/20 Range/Units 18:20 Sodium 140 (137-145) mmol/L Potassium 4.1 (3.5-5.1) mmol/L Chloride 106 (98-107) mmol/L Carbon Dioxide 27 (22-30) mmol/L BUN 21 H (9-20) mg/dL Creatinine 0.96 (0.66-1.25) mg/dL Glucose 108 H (74-99) mg/dL Calcium 9.9 (8.4-10.2) mg/dL Adrenal panel 05/23/20 Range/Units 18:20 Sodium 140 (137-145) mmol/L Potassium 4.1 (3.5-5.1) mmol/L Chloride 106 (98-107) mmol/L Carbon Dioxide 27 (22-30) mmol/L BUN 21 H (9-20) mg/dL Creatinine 0.96 (0.66-1.25) mg/dL Glucose 108 H (74-99) mg/dL Calcium 9.9 (8.4-10.2) mg/dL Total Bilirubin 0.5 (0.2-1.3) mg/dL AST 29 (17-59) U/L ALT 29 (4-49) U/L Alkaline Phosphatase 45 (38-126) U/L Total Protein 8.3 H (6.3-8.2) g/dL Albumin 5.2 H (3.5-5.0) g/dL
[2020-05-24] MEDS ORDERED: IV FLUID CONTINUATION 500 ML IV ONE (13:28)
[2020-05-24] MEDS ORDERED: ONDANSETRON 4 MG/2 ML VIAL IVP ONE (13:34)
[2020-05-24] MEDS ORDERED: DEXAMETHASONE SOD PHOSPHATE 10 MG/ML 1 ML VIAL IV ONE (13:35)
[2020-05-24] MEDS ORDERED: HEPARIN SODIUM,PORCINE 5,000 UNIT/ML 1 ML VIAL ONE (13:48)
[2020-05-24] MEDS ORDERED: HEPARIN SODIUM,PORCINE 5,000 UNIT/ML 1 ML VIAL SQ ONE (14:01)
[2020-05-24] MEDS ORDERED: BUPIVACAINE (PF) 0.25% 30 ML VIAL SQ ONE ×3 (14:13→14:35)
[2020-05-24] MEDS ORDERED: fentaNYL (PF) 50 MCG/ML 2 ML AMP ONE (14:14)
[2020-05-24] MEDS ORDERED: MIDAZOLAM 2 MG/2 ML VIAL ONE (14:14)
[2020-05-24] MEDS ORDERED: SUCCINYLCHOLINE CHLORIDE 100 MG/5 ML SYR IV ONE (14:14)
[2020-05-24] MEDS ORDERED: HYDROmorphone (PF) 1 MG/ML ONE (14:14)
[2020-05-24] MEDS ORDERED: PROPOFOL 10 MG/ML 20 ML VIAL IV ONE (14:14)
[2020-05-24] MEDS ORDERED: NEOSTIGMINE 1 MG/ML 10 ML VIAL ONE (14:14)
[2020-05-24] MEDS ORDERED: LIDOCAINE 1% INJ 10MG/ML (20 ML MDV) ONE (14:14)
[2020-05-24] MEDS ORDERED: GLYCOPYRROLATE 0.2 MG/ML 2 ML VIAL ONE (14:14)
[2020-05-24] MEDS ORDERED: ROCURONIUM 10 MG/ML (10 ML VIAL) IV ONE (14:14)
[2020-05-24] MEDS ORDERED: LACTATED RINGERS 1,000 ML IV ONE (14:20)
[2020-05-24] MEDS ORDERED: HYDROcodone/APAP 5-325MG 1 EACH TAB PO PRN (15:11)
[2020-05-24] MEDS ORDERED: HYDROmorphone 0.5 MG/0.5 ML SYRINGE IVP PRN (15:11)
[2020-05-24] MEDS ORDERED: METOCLOPRAMIDE 5 MG/ML 2 ML VIAL IVP PRN (15:11)
--- NOTE | 2020-05-24 15:15 | P.OP ---
Date of Procedure: 05/24/20 Procedure(s) Performed: PREOPERATIVE DIAGNOSIS: Acute appendicitis POSTOPERATIVE DIAGNOSIS: Same PROCEDURE: Laparoscopic appendectomy SURGEON: Kimberly EBL: Minimal ANESTHESIA: General COMPLICATIONS: None OPERATIVE PROCEDURE: The patient was brought and placed on the operating table in the supine position. The patient was placed under general anesthesia. The abdomen was prepped and draped in the usual sterile fashion. A small vertical infraumbilical incision was made. The fascia was retracted anteriorly with Adrian forceps. The Veress needle was advanced into the peritoneal cavity. The saline drop test was normal. Insufflation took place to 15 mmHg. A 5 mm trocar was then placed. An additional 5 mm suprapubic trocar was placed under direct visualization as well as a 12 mm left lower quadrant trocar under direct visualization. The appendix was inspected. It was acutely inflamed and distend ed. The patient had some adhesions between the terminal ileum and the right pelvis that were lysed sharply so that we could visualize the appendix better. Following that the medial appendix was dissected using the LigaSure device. The base of the appendix was divided using a linear 45 mm intestinal stapler. The area was then irrigated. No further purulence or bleeding was seen. The appendix was brought out of the peritoneal cavity through the left lower quadrant trocar site with an Endo Catch bag. The fascia at the 12 mm site was closed using a Lucho-Diomedes 0 Vicryl stitch. The skin at all 3 sites was closed using 4-0 Monocryl sutures. Skin glue was then applied. DISPOSITION: Stable to recovery room
[2020-05-24 16:04] VITALS: RESP 16; TEMP 97
[2020-05-24 16:51] VITALS: BP 164/98; PULSE 94
[2020-05-24] MEDS ORDERED: DOCUSATE 100 MG CAP PO SCH (21:00)
[2020-05-25] MEDS ORDERED: HEPARIN SODIUM,PORCINE 5,000 UNIT/ML 1 ML VIAL SQ SCH
[2020-05-25] MEDS ORDERED: PANTOPRAZOLE 40 MG/10 ML VIAL IV SCH (09:00)
== END 2020-05-24 20:04 ==
LOC: EC 17:15 → 1SOBS 20:52 → EC 21:44
PROVIDERS: ADMIT Surgery; ATTEND Surgery
DX: K35.80 Unspecified acute appendicitis (principal); K21.9 Gastro-esophageal reflux disease without esophagitis; F17.200 Nicotine dependence, unspecified, uncomplicated; Z79.899 Other long term (current) drug therapy; Z85.47 Personal history of malignant neoplasm of testis; Z90.79 Acquired absence of other genital organ(s)
CPT/HCPCS: 96365; 96375 ×2; 96376; 99285; 36415; 88304; 80053; 85025; 81001; 74177; 44970; G0378 ×2; J2543 ×2; J2250; J1644; J1100; J2710; J2405 ×2; J2001; J3010; J2270 ×2; J1170; J0131; J0330; J2704; Q9967

== ENCOUNTER → 2020-12-13 | Outpatient (CLI) | payer OTHER ==
--- NOTE | 2020-12-13 19:12 | XR ---
EXAMINATION TYPE: XR chest 2V DATE OF EXAM: 12/13/2020 COMPARISON: NONE TECHNIQUE: PA and lateral views submitted. HISTORY: Testicular cancer FINDINGS: The lungs are clear and there is no pneumothorax, pleural effusion, or focal pneumonia. Hypertrophi c change of the spine. Hyperinflation suggests IMPRESSION: 1. No acute process.
--- NOTE | 2020-12-13 21:08 | CT ---
EXAMINATION TYPE: CT abdomen pelvis w con DATE OF EXAM: 12/13/2020 COMPARISON: 05/23/2020 HISTORY: testicular ca f/u CT DLP: 711.6 mGycm Automated exposure control for dose reduction was used. CONTRAST: CT scan of the abdomen pelvis is performed with IV Contrast, patient injected with 100 mL of Isovue 3 00. FINDINGS- LUNG BASES-linear changes left lung base most typical of atelectasis.. LIVER/GB- No gross abnormality is appreciated. PANCREAS- No gross abnormality is seen. SPLEEN- No gross abnormality is seen. ADRENALS- No gross abnormality is seen. KIDNEYS/BLADDER-no hydronephrosis. Sub-5 mm hypodensities within the kidneys too small to characteriz e and retrospectively stable. Statistically most likely related to cysts.. BOWEL-nonspecific abdomen. No obstruction. LYMPH NODES- No greater than 1cm abdominal or pelvic lymph nodes areappreciated. Shotty lymphadenopa thy in the retroperitoneum with the largest lymph node measuring a short axis of 7 mm. Shotty adenopa thy in the inguinal regions. OSSEOUS STRUCTURES- No significant abnormality is seen. OTHER- hypertrophic and degenerative change of the spine. Prostate gland is mildly enlarged. IMPRESSION- 1. Shotty adenopathy in the retroperitoneum is stable with no pathologic sized lymph nodes identified . 2. Probable simple renal cysts. 3. Mild prostate enlargement.
== END | disposition home or self-care (01) ==
LOC: RADCTMAIN 17:07
PROVIDERS: ATTEND Urology
DX: C62.90 Malignant neoplasm of unspecified testis, unspecified whether descended or undescended (principal); N40.0 Benign prostatic hyperplasia without lower urinary tract symptoms
CPT/HCPCS: 84153; 82105; 71046; 74177; Q9967

== ENCOUNTER 2021-03-13 09:24 | Emergency (ER) | payer OTHER ==
[2021-03-13 09:29] VITALS: BP 145/95; PULSE 113; RESP 18; TEMP 98
[2021-03-13] MEDS ORDERED: LIDOCAINE 1% INJ 10MG/ML (20 ML MDV) SQ ONE (09:46)
[2021-03-13] MEDS ORDERED: DIPH,PERTUS(ACELL)TETVAC-LF 0.5 ML VIAL IM ONE (09:46)
[2021-03-13] MEDS ORDERED: BACITRACIN OINT 1 EACH PACKET TOPICAL ONE (09:46)
--- NOTE | 2021-03-13 09:51 | ED ---
Wound/Laceration HPI - General Chief Complaint: Wound/Laceration Stated Complaint: thumb laceration Time Seen by Provider: 03/13/21 09:29 Source: patient Mode of arrival: ambulatory Limitations: no limitations - History of Present Illness Initial Comments: 45 year-old male patient presents to the emergency department for evaluation of left thumb laceration. Patient states he was working on a car and cutting an exhaust pipe when it fell and sliced his thumb. States he dressed it immediately but it started bleeding whenever he bent his thumb. He denies any significant pain to the area. Denies any numbness, tingling, or difficulty moving the thumb. Denies any other injuries or concerns. He is unsure when his last tetanus was given. - Related Data Previous Rx's Medication Instructions Recorded Hydrocodone/Acetaminophen [[place] 1 tab PO Q6HR PRN 3 Days #10 tab 05/24/20 5-325] Allergies Allergy/AdvReac Type Severity Reaction Status Date / Time No Known Allergies Allergy Verified 03/13/21 09:29 Review of Systems ROS Statement: Those systems with pertinent positive or pertinent negative responses have been documented in the HPI. ROS Other: All systems not noted in ROS Statement are negative. Past Medical History Past Medical History: Cancer, GERD/Reflux Additional Past Medical History / Comment(s): testicle CA History of Any Multi-Drug Resistant Organisms: None Reported Past Surgical History: Appendectomy Additional Past Surgical History / Comment(s): nasal sx, L testicle removed Past Anesthesia/Blood Transfusion Reactions: No Reported Reaction Past Psychological History: No Psychological Hx Reported Smoking Status: Never smoker Past Alcohol Use History: Occasional Past Drug Use History: None Reported General Exam Limitations: no limitations General appearance: alert, in no apparent distress, other (Physical well- developed, well-nourished adult male patient in no acute distress. Vital signs upon presentation are temperature 98.0F, pulse 113, respirations 18, blood pressure 145/95, pulse ox 95% on room air.) Respiratory exam: Present: normal lung sounds bilaterally. Absent: respiratory distress, wheezes, rales, rhonchi, stridor Cardiovascular Exam: Present: regular rate, normal rhythm, normal heart sounds. Absent: systolic murmur, diastolic murmur, rubs, gallop, clicks Extremities exam: Present: full ROM, normal capillary refill, other (There is 3 cm laceration noted to the base of the left thumb. No active bleeding. Skin to the thumb is pink, warm, dry. Cap refill less than 3 seconds. Radial pulses 2+.). Absent: tenderness, pedal edema, joint swelling, calf tenderness Neurological exam: Present: alert, oriented X3, CN II-XII intact Psychiatric exam: Present: normal affect, normal mood Skin exam: Present: warm, dry, intact, normal color. Absent: rash Course Vital Signs 03/13/21 09:24 Temperature 98 F Pulse Rate 113 H Respiratory 18 Rate Blood Pressure 145/95 O2 Sat by Pulse 95 Oximetry Procedures - Laceration Laceration #1 Consent Obtained: verbal consent Indication: laceration Site: hand (Left thumb) Size (cm): 3 Description: linear Depth: simple, single layer Anesthetic Used: lidocaine 1% Anesthesia Technique: local infiltration Amount (mls): 3 Pre-repair: irrigated extensively Type of Sutures: nylon Size of Sutures: 4-0 Number of Sutures: 3 Technique: simple, interrupted Patient Tolerated Procedure: well, no complications Medical Decision Making - Medical Decision Making 45-year-old male patient presents to the emergency department today for evaluation of laceration to the left thumb. Physical examination did reveal a 3 cm laceration. No active bleeding. Wound was cleansed and repaired as documented. Neurovascular status was intact. He'll be discharged follow up with primary care physician for recheck in 1-2 days. He is educated regarding wound care, signs or symptoms of infection, and suture removal. Return parameters were discussed in detail. He verbalizes understanding and agrees this plan. My attending is Dr. Augustine. Disposition Clinical Impression: Laceration of left thumb Disposition: HOME SELF-CARE Condition: Good Instructions (If sedation given, give patient instructions): Care For Your Stitches (ED), Laceration (ED) Additional Instructions: Keep wound clean and dry. Cleanse twice daily with warm water and antibacterial soap. Return in 7 days of the stitches removed. Do not submerge hand in water. Monitor for signs or symptoms of infection including but not limited to redness, swelling, drainage of pus, fever, or chills. Return to the emergency department for any new, worsening, or concerning symptoms. Is patient prescribed a controlled substance at d/c from ED?: No Referrals: None,Stated [Primary Care Provider] - 1-2 days Time of Disposition: 10:16
== END 2021-03-13 10:27 | disposition home or self-care (01) ==
LOC: EC 09:24
DX: S61.012A Laceration without foreign body of left thumb without damage to nail, initial encounter (principal); Z23 Encounter for immunization; Z85.47 Personal history of malignant neoplasm of testis; W26.8XXA Contact with other sharp object(s), not elsewhere classified, initial encounter
CPT/HCPCS: 90715; 12002; 90471; 99282; J2001

== ENCOUNTER → 2021-08-20 | Outpatient (CLI) | payer OTHER ==
--- NOTE | 2021-08-21 07:07 | CT ---
EXAMINATION TYPE: CT abdomen pelvis w con DATE OF EXAM: 08/20/2021 COMPARISON: CT abdomen and pelvis December 13, 2020 and older studies HISTORY: f/u testicular ca, c/o flank pain CT DLP: 864.5 mGycm, Automated Exposure Control for Dose Reduction was Utilized. CONTRAST: CT scan of the abdomen and pelvis is performed with oral and with IV Contrast, patient injected with 100 mL of Isovue 300. FINDINGS: LUNG BASES: No significant abnormality is appreciated. LIVER/GB: No significant abnormality is appreciated. PANCREAS: No significant abnormality is seen. SPLEEN: No significant abnormality is seen. ADRENALS: No significant abnormality is seen. KIDNEYS: Symmetric cortical medullary uptake and excretion bilaterally without hydronephrosis seen. N o distinct renal calculi are identified. BOWEL: Oral contrast has not reached level of the terminal ileum making evaluation of distal bowel sl ightly suboptimal. Sutures at base of cecum from appendectomy are seen. No suspicious small or large bowel dilatation is noted. PROSTATE/SEMINAL VESICLES: Upper limits of normal in size with adjacent left-sided pelvic phlebolith. LYMPH NODES: No new greater than 1cm abdominal or pelvic lymph nodes are appreciated. OSSEOUS STRUCTURES: Moderate disc space narrowing redemonstrated. OTHER: Left testicle is surgically absent. IMPRESSION: No significant new or acute finding is seen to account for patient's clinical symptoms.
--- NOTE | 2021-08-21 11:12 | XR ---
EXAMINATION TYPE: XR chest 2V DATE OF EXAM: 08/20/2021 COMPARISON: 12/13/2020 INDICATION: History of testicular cancer TECHNIQUE: Frontal and lateral views of the chest are obtained. FINDINGS: The heart size is normal. The pulmonary vasculature is normal. The lungs are clear. Osseous structures appear normal. IMPRESSION: 1. No suspicious changes to suggest metastatic disease.
== END | disposition home or self-care (01) ==
LOC: RADCTMAIN 16:21
PROVIDERS: ATTEND Urology
DX: R10.9 Unspecified abdominal pain (principal); Z85.47 Personal history of malignant neoplasm of testis
CPT/HCPCS: 83615; 82105; 71046; 74177; 36415; Q9967

== ENCOUNTER 2022-12-03 19:38 | Observation (INO) | payer OTHER ==
[2022-12-03] MEDS ORDERED: SODIUM CHLORIDE 0.9% 1,000 ML IV STA (19:59)
--- NOTE | 2022-12-03 20:15 | ED ---
General Adult HPI - General Chief complaint: Chest Pain Stated complaint: HEART RACING-LIGHT HEADED Time Seen by Provider: 12/03/22 19:54 Source: patient, RN notes reviewed, old records reviewed Mode of arrival: ambulatory Limitations: no limitations - History of Present Illness Initial comments: 46-year-old male presenting with palpitations. Patient's symptoms 7 present for the past several days. They are worse with any exertion. No associated chest pain. No dyspnea and no vomiting or diarrhea. No fever. No cough. No prior history of CAD or arrhythmia. - Related Data Home Medications Medication Instructions Recorded Confirmed No Known Home Medications 12/03/22 12/03/22 Allergies Allergy/AdvReac Type Severity Reaction Status Date / Time No Known Allergies Allergy Verified 12/03/22 21:53 Review of Systems ROS Statement: Those systems with pertinent positive or pertinent negative responses have been documented in the HPI. ROS Other: All systems not noted in ROS Statement are negative. Past Medical History Past Medical History: Cancer, GERD/Reflux Additional Past Medical History / Comment(s): testicle CA History of Any Multi-Drug Resistant Organisms: None Reported Past Surgical History: Appendectomy Additional Past Surgical History / Comment(s): nasal sx, L testicle removed Past Anesthesia/Blood Transfusion Reactions: No Reported Reaction Past Psychological History: Anxiety Smoking Status: Never smoker Past Alcohol Use History: Occasional Past Drug Use History: None Reported General Exam Limitations: no limitations Course Vital Signs 12/03/22 19:46 Temperature 97.6 F Pulse Rate 121 H Respiratory 18 Rate Blood Pressure 153/93 O2 Sat by Pulse 97 Oximetry EKG Findings - EKG Comments: EKG Findings:: EKG: Sinus rhythm moderate intraventricular conduction delay, rate of 95, CA interval 153, QRS duration 113, QTC 403, no ST segment elevation. Medical Decision Making - Medical Decision Making Was pt. sent in by a medical professional or institution (, PA, EMERGENCY MEDICAL TECHNICIAN BASIC, urgent care, hospital, or skilled nursing...) When possible be specific @ -No Did you speak to anyone other than the patient for history (EMS, parent, family, police, friend...)? What history was obtained from this source @ -No Did you review nursing and triage notes (agree or disagree)? Why? @ -I reviewed and agree with nursing and triage notes Were old charts reviewed (outside hosp., previous admission, EMS record, old EKG, old radiological studies, urgent care reports/EKG's, skilled nursing records)? Report findings @ -No old charts were reviewed Differential Diagnosis (chest pain, altered mental status, abdominal pain women, abdominal pain men, vaginal bleeding, weakness, fever, dyspnea, syncope, headache, dizziness, GI bleed, back pain, seizure, CVA, palpatations, mental health, musculoskeletal)? @ -Differential Palpitations Ventricular arrhythmias, atrial arrhythmias, myocardial infarction, anemia, thyrotoxicosis, electrolyte imbalance, hypokalemia, pulmonary embolism, pulmonary disease, drugs, alcohol, anxiety, stress.... This is not meant to be an all-inclusive list. EKG interpreted by me (3pts min.). @ -As above X-rays interpreted by me (1pt min.). @Negative for acute cardiopulmonary findings CT interpreted by me (1pt min.). @ -None done U/S interpreted by me (1pt. min.). @ -None done What testing was considered but not performed or refused? (CT, X-rays, U/S, labs)? Why? @ -None What meds were considered but not given or refused? Why? @ -None Did you discuss the management of the patient with other professionals (professionals i.e. , PA, EMERGENCY MEDICAL TECHNICIAN BASIC, lab, RT, psych nurse, social work lecturer, associate designer, teacher, chief marketing officer, case management manager)? Give summary @ Rudolph debra RASHEEDPhan Was smoking cessation discussed for >3mins.? @ -No Was critical care preformed (if so, how long)? @ -No Were there social determinants of health that impacted care today? How? (Homelessness, low income, unemployed, alcoholism, drug addiction, transportation, low edu. Level, literacy, decrease access to med. care, shelter, rehab)? @ -No Was there de-escalation of care discussed even if they declined (Discuss DNR or withdrawal of care, Hospice)? DNR status @ -No What co-morbidities impacted this encounter? (DM, HTN, Smoking, COPD, CAD, Cancer, CVA, ARF, Chemo, Hep., AIDS, mental health diagnosis, sleep apnea, morbid obesity)? @ HTN Was patient admitted / discharged? Hospital course, mention meds given and route, prescriptions, significant lab abnormalities, going to OR and other pertinent info. @ 46-year-old male presenting with palpitations and chest tightness. Initial EKG is sinus rhythm. Chest x-ray is clear. He has a normal CBC, normal CMP, negative d-dimer, negative troponin, normal TSH. Patient does have several runs of A. fib on the monitor with intermittent sinus rhythm. I do suspect new-onset A. fib. I was unable to capture this on EKG. . Will admit and telemetry with serial cardiac enzymes, cardiology consultation. Undiagnosed new problem with uncertain prognosis? @ -No Drug Therapy requiring intensive monitoring for toxicity (Heparin, Nitro, Insulin, Cardizem)? @ -No Were any procedures done? @ -No Diagnosis/symptom? @ Chest pain, palpitations, suspect new-onset A. fib Acute, or Chronic, or Acute on Chronic? @ -Acute Uncomplicated (without systemic symptoms) or Complicated (systemic symptoms)? @ Complicated Side effects of treatment? @ -No Exacerbation, Progression, or Severe Exacerbation? @ -No Poses a threat to life or bodily function? How? (Chest pain, [place], [place], pneumonia, PE, COPD, DKA, ARF, appy, cholecystitis, CVA, Diverticulitis, Homicidal, Suicidal, threat to staff... and all critical care pts) @ Yes, arrhythmia, chest pain - Lab Data Result diagrams: 12/03/22 20:10 12/03/22 20:10 Lab Results 12/03/22 12/03/22 12/03/22 Range/Units 20:10 20:10 20:10 WBC 7.1 (3.8-10.6) k/uL RBC 4.91 (4.30-5.90) m/uL Hgb 15.3 (13.0-17.5) gm/dL Hct 44.5 (39.0-53.0) % MCV 90.6 (80.0-100.0) fL MCH 31.1 (25.0-35.0) pg MCHC 34.3 (31.0-37.0) g/dL RDW 11.9 (11.5-15.5) % Plt Count 166 (150-450) k/uL MPV 7.4 Neutrophils % 72 % Lymphocytes % 18 % Monocytes % 7 % Eosinophils % 1 % Basophils % 0 % Neutrophils # 5.1 (1.3-7.7) k/uL Lymphocytes # 1.3 (1.0-4.8) k/uL Monocytes # 0.5 (0-1.0) k/uL Eosinophils # 0.1 (0-0.7) k/uL Basophils # 0.0 (0-0.2) k/uL PT 10.9 (9.0-12.0) sec INR 1.0 (<1.2) APTT 23.8 (22.0-30.0) sec D-Dimer 0.19 (<0.60) mg/L FEU Sodium 140 (137-145) mmol/L Potassium 3.6 (3.5-5.1) mmol/L Chloride 102 (98-107) mmol/L Carbon Dioxide 26 (22-30) mmol/L Anion Gap 12 mmol/L BUN 18 (9-20) mg/dL Creatinine 1.04 (0.66-1.25) mg/dL Est GFR (CKD-EPI)AfAm >90 (>60 ml/min/1.73 sqM) Est GFR (CKD-EPI)NonAf 86 (>60 ml/min/1.73 sqM) Glucose 119 H (74-99) mg/dL Calcium 9.4 (8.4-10.2) mg/dL Magnesium 2.1 (1.6-2.3) mg/dL Total Bilirubin 0.8 (0.2-1.3) mg/dL AST 28 (17-59) U/L ALT 29 (4-49) U/L Alkaline Phosphatase 49 (38-126) U/L Troponin I (0.000-0.034) ng/mL Total Protein 8.0 (6.3-8.2) g/dL Albumin 5.0 (3.5-5.0) g/dL TSH 1.150 (0.465-4.680) mIU/L 12/03/22 Range/Units 20:10 WBC (3.8-10.6) k/uL RBC (4.30-5.90) m/uL Hgb (13.0-17.5) gm/dL Hct (39.0-53.0) % MCV (80.0-100.0) fL MCH (25.0-35.0) pg MCHC (31.0-37.0) g/dL RDW (11.5-15.5) % Plt Count (150-450) k/uL MPV Neutrophils % % Lymphocytes % % Monocytes % % Eosinophils % % Basophils % % Neutrophils # (1.3-7.7) k/uL Lymphocytes # (1.0-4.8) k/uL Monocytes # (0-1.0) k/uL Eosinophils # (0-0.7) k/uL Basophils # (0-0.2) k/uL PT (9.0-12.0) sec INR (<1.2) APTT (22.0-30.0) sec D-Dimer (<0.60) mg/L FEU Sodium (137-145) mmol/L Potassium (3.5-5.1) mmol/L Chloride (98-107) mmol/L Carbon Dioxide (22-30) mmol/L Anion Gap mmol/L BUN (9-20) mg/dL Creatinine (0.66-1.25) mg/dL Est GFR (CKD-EPI)AfAm (>60 ml/min/1.73 sqM) Est GFR (CKD-EPI)NonAf (>60 ml/min/1.73 sqM) Glucose (74-99) mg/dL Calcium (8.4-10.2) mg/dL Magnesium (1.6-2.3) mg/dL Total Bilirubin (0.2-1.3) mg/dL AST (17-59) U/L ALT (4-49) U/L Alkaline Phosphatase (38-126) U/L Troponin I <0.012 (0.000-0.034) ng/mL Total Protein (6.3-8.2) g/dL Albumin (3.5-5.0) g/dL TSH (0.465-4.680) mIU/L Disposition Clinical Impression: Chest pain, Palpitations Disposition: ADMITTED IP TO THIS HOSP Condition: Stable Is patient prescribed a controlled substance at d/c from ED?: No Referrals: None,Stated [Primary Care Provider] - 1-2 days Time of Disposition: 22:51
[2022-12-03 21:03] LABS: Basophils % (A) 0 %; Eosinophils # (A) 0.1 k/uL (0-0.7); Eosinophils % (A) 1 %; HCT 44.5 % (39.0-53.0); HGB 15.3 gm/dL (13.0-17.5); Lymphocytes # (A) 1.3 k/uL (1.0-4.8); Lymphocytes % (A) 18 %; MCH 31.1 pg (25.0-35.0); MCHC 34.3 g/dL (31.0-37.0); MCV 90.6 fL (80.0-100.0); Mean Platelet Volume 7.4; Monocytes # (A) 0.5 k/uL (0-1.0); Monocytes % (A) 7 %; Neutrophils # (A) 5.1 k/uL (1.3-7.7); Neutrophils % (A) 72 %; Platelet Count 166 k/uL (150-450); RBC 4.91 m/uL (4.30-5.90); RDW 11.9 % (11.5-15.5); WBC 7.1 k/uL (3.8-10.6)
[2022-12-03 21:10] LABS: Partial Thromboplastin Time 23.8 sec (22.0-30.0); Prothrombin Time 10.9 sec (9.0-12.0)
[2022-12-03 21:16] LABS: ALT 29 U/L (4-49); AST 28 U/L (17-59); African American GFR (CKD) >90 (>60 ml/min/1.73 sqM); Alkaline Phosphatase 49 U/L (38-126); Anion Gap 12 mmol/L; Blood Urea Nitrogen 18 mg/dL (9-20); Calcium 9.4 mg/dL (8.4-10.2); Carbon Dioxide 26 mmol/L (22-30); Chloride 102 mmol/L (98-107); Glucose 119 mg/dL (74-99); Magnesium 2.1 mg/dL (1.6-2.3); Non-African American GFR(CKD) 86 (>60 ml/min/1.73 sqM); Potassium 3.6 mmol/L (3.5-5.1); Sodium 140 mmol/L (137-145); Total Bilirubin 0.8 mg/dL (0.2-1.3)
--- NOTE | 2022-12-03 21:42 | XR ---
EXAMINATION TYPE: XR chest 2V DATE OF EXAM: 12/03/2022 9:35 PM COMPARISON: Chest radiographs from 08/20/2021 TECHNIQUE: XR chest 2V Frontal and lateral views of the chest. CLINICAL INDICATION:Male, 46 years old with history of dysrhythmia; FINDINGS: Lungs/Pleura: There is no evidence of pleural effusion, focal consolidation, or pneumothorax. Pulmonary vascularity: Unremarkable. Heart/mediastinum: Cardiomediastinal silhouette is unremarkable. Musculoskeletal: No acute osseous pathology. IMPRESSION: No acute cardiopulmonary disease/process.
[2022-12-03] MEDS ORDERED: ASPIRIN 325 MG TAB PO STA (22:21)
[2022-12-03] MEDS ORDERED: DILTIAZEM DRIP BOLUS FROM BAG 1 MG SOLN IV ONE (22:44)
[2022-12-03] MEDS ORDERED: DILTIAZEM 125 MG in SODIUM CHLORIDE 0.9% 100 ML IV SCH (22:45)
[2022-12-03] MEDS ORDERED: ACETAMINOPHEN TAB 325 MG TAB PO PRN (22:45)
[2022-12-03] MEDS ORDERED: NALOXONE 0.4 MG/ML 1 ML VIAL IV PRN (22:45)
[2022-12-03] MEDS ORDERED: LORazepam 2 MG/ML INJ IV STA (22:52)
[2022-12-03] MEDS: SODIUM CHLORIDE 0.9% 1,000 ML IV SCH (23:43)
[2022-12-04 08:12] VITALS: RESP 16
[2022-12-04] MEDS ORDERED: PANTOPRAZOLE 40 MG/10 ML VIAL IVP SCH (10:15)
--- NOTE | 2022-12-04 12:43 | P.CRDCN ---
History of Present Illness History of present illness: HISTORY OF PRESENT ILLNESS: This is a 46-year-old male with a past medical history significant for testicular cancer and alcohol use. Patient does not follow with a skiver machine. We have been asked to see the patient in consultation for chest pain and palpitations. Patient examined at the bedside. Patient states yesterday when he got home from work he began to have chest pain. He states that his chest felt heavy. He denied any radiation of the pain. He denied any shortness of breath. He reports feeling palpitations. He denied having any dizziness or ligh theadedness. He states that he has anxiety which made his symptoms worse so he decided to come to the emergency room. The patient denies having any chest pain at the time of examination. Telemetry reviewed revealing sinus mechanism with no signs of atrial fibrillation. The ER physician documented the patient was having runs of atrial fibrillation on the bedside monitor. However there has been no EKG or telemetry evidence of atrial fibrillation. Patient reports a family history of coronary artery disease and states his dad at the age of 67 of a heart attack. * EKG reveals sinus mechanism with no signs of acute ischemia * Chest xray negative for acute process * Laboratory data: WBC 7.1. Hemoglobin 15.3. Plavix, 166. D-dimer 0.19. Sodium 140. Potassium 3.6. BUN 18. Creatinine 1.04. Troponin negative 3. TSH 1.150. * Current home cardiac medications include none REVIEW OF SYSTEMS: At the time of my exam: CONSTITUTIONAL: Denies fever or chills. HEENT: Denies blurred vision, vision changes, or eye pain. Denies hemoptysis CARDIOVASCULAR: Denies chest pain. Denies orthopnea. Denies PND. Denies palpitations RESPIRATORY: Denies shortness of breath. GASTROINTESTINAL: Denies abdominal pain. Denies nausea or vomiting. HEMATOLOGIC: Denies bleeding disorders. GENITOURINARY: Denies any blood in urine. SKIN: Denies pruitis. Denies rash. PHYSICAL EXAM: VITAL SIGNS: Reviewed. GENERAL: Well-developed in no acute distress. HEENT: Head is normocephalic. Pupils are equal, round. Sclerae anicteric. Mucous membranes of the mouth are moist. Neck supple. No JVD or thyromegaly LUNGS: Respirations even and unlabored. Lungs essentially clear to auscultation bilaterally. HEART: Regular rate and rhythm. S1 and S2 heard. ABDOMEN: Soft. Nondistended. Nontender. EXTREMITIES: Normal range of motion. No clubbing or cyanosis. Peripheral pulses intact. No lower extremity edema NEUROLOGIC: Awake and alert. Oriented x 3. ASSESSMENT: Chest pain, troponins negative 3 Palpitations, rule out arrhythmia History of testicular cancer Family history of coronary artery disease PLAN: An acute coronary event has been ruled out Obtain 2-D echo to assess cardiac structure and function Patient to undergo stress testing today If stress test is negative and 2-D echo is unremarkable, will set patient up for a 2 week event monitor Further recommendations pending patient's course Patient to follow-up post discharge with Dr. Sanchez Nurse practitioner note has been reviewed by physician. Signing provider agrees with the documented findings, assessment, and plan of care. Past Medical History Past Medical History: Cancer, GERD/Reflux Additional Past Medical History / Comment(s): testicle CA History of Any Multi-Drug Resistant Organisms: None Reported Past Surgical History: Appendectomy Additional Past Surgical History / Comment(s): nasal sx, L testicle removed Past Anesthesia/Blood Transfusion Reactions: No Reported Reaction Past Psychological History: Anxiety Smoking Status: Never smoker Past Alcohol Use History: Occasional Additional Past Alcohol Use History / Comment(s): Pt states he only drinks on the weekends, no more than a case Past Drug Use History: None Reported - Past Family History Mother Family Medical History: Cancer, Diabetes Mellitus Father Family Medical History: Coronary Artery Disease (CAD), Myocardial Infarction ([place]) Medications and Allergies Home Medications Medication Instructions Recorded Confirmed Type No Known Home Medications 12/03/22 12/03/22 History Allergies Allergy/AdvReac Type Severity Reaction Status Date / Time No Known Allergies Allergy Verified 12/03/22 21:53 Physical Exam Vitals: Vital Signs Temp Pulse Pulse Resp BP BP Pulse Ox 12/04/22 08:11 97.8 F 99 16 143/86 98 12/04/22 03:15 97.9 F 93 14 143/78 97 12/04/22 00:25 97.7 F 106 H 20 145/95 97 12/03/22 23:12 92 16 173/99 98 12/03/22 19:46 97.6 F 121 H 18 153/93 97 Intake and Output 12/03/22 12/04/22 12/04/22 22:59 06:59 14:59 Intake Total 180 Balance 180 Intake: Oral 180 Other: Voiding Method Toilet # Voids 1 1 Weight 83.915 kg 83.915 kg Results 12/03/22 20:10 12/03/22 20:10 Cardiac Enzymes 12/03/22 12/03/22 12/04/22 Range/Units 20:10 20:10 00:08 AST 28 (17-59) U/L Troponin I <0.012 <0.012 (0.000-0.034) ng/mL 12/04/22 Range/Units 04:01 AST (17-59) U/L Troponin I <0.012 (0.000-0.034) ng/mL Coagulation 12/03/22 Range/Units 20:10 PT 10.9 (9.0-12.0) sec APTT 23.8 (22.0-30.0) sec CBC 12/03/22 Range/Units 20:10 WBC 7.1 (3.8-10.6) k/uL RBC 4.91 (4.30-5.90) m/uL Hgb 15.3 (13.0-17.5) gm/dL Hct 44.5 (39.0-53.0) % Plt Count 166 (150-450) k/uL Comprehensive Metabolic Panel 12/03/22 Range/Units 20:10 Sodium 140 (137-145) mmol/L Potassium 3.6 (3.5-5.1) mmol/L Chloride 102 (98-107) mmol/L Carbon Dioxide 26 (22-30) mmol/L BUN 18 (9-20) mg/dL Creatinine 1.04 (0.66-1.25) mg/dL Glucose 119 H (74-99) mg/dL Calcium 9.4 (8.4-10.2) mg/dL AST 28 (17-59) U/L ALT 29 (4-49) U/L Alkaline Phosphatase 49 (38-126) U/L Total Protein 8.0 (6.3-8.2) g/dL Albumin 5.0 (3.5-5.0) g/dL Current Medications Generic Name Dose Route Start Last Admin Trade Name Freq PRN Reason Stop Dose Admin Acetaminophen 650 mg 12/03/22 22:45 Acetaminophen Tab 325 Mg Tab PO Q6HR PRN Mild Pain or Fever > 100.5 Sodium Chloride 1,000 mls @ 75 mls/hr 12/03/22 22:45 12/03/22 23:43 Saline 0.9% IV 75 mls/hr .[id number] MARIBEL Administration Naloxone HCl 0.2 mg 12/03/22 22:45 Naloxone 0.4 Mg/Ml 1 Ml Vial IV Q2M PRN Opioid Reversal Pantoprazole Sodium 40 mg 12/04/22 10:15 Pantoprazole 40 Mg/10 Ml Vial IVP DAILY MARIBEL Intake and Output 12/03/22 12/04/22 12/04/22 22:59 06:59 14:59 Intake Total 180 Balance 180 Intake: Oral 180 Other: Voiding Method Toilet # Voids 1 1 Weight 83.915 kg 83.915 kg 12/03/22 20:10 12/03/22 20:10
--- NOTE | 2022-12-04 13:04 | P.HPIM ---
History of Present Illness H&P Date: 12/04/22 This is a 46 year old male with medical history of gastroesophageal reflux, and testicular cancer. Patient does not follow with a physician. Patient presents to the hospital with complaints of palpitations and heart racing for the last 2 days. Patient reports symptoms with minimal exertion, began on Wednesday when came home from work. Patient then went to the gym in the evening and was using the bench press and began experiencing the fluttering and heart racing again. He reports no associated shortness of breath. He reports feeling lightheaded and sweaty when his heart is racing. He also had left sided chest pressure. He does have a remote history of anxiety and panic attacks years ago but reports this felt different. Denies any tobacco use, no illicut substance use. 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 He was concerned and felt anxious and came to the hospital for evaluation. No prior cardiac history. He does have a family history of coronary artery disease his father age 67 from a heart attack. At the time of exam patient is resting in bed, he is currently denying chest pain. He is in normal sinus rhythm. Initial EKG reveals normal sinus rhythm with heart rate of 86, no ST or T wave changes. Troponin level is negative x 3. Patient is admitted for cardiac evaluation and scheduled to undergo stress test today. REVIEW OF SYSTEMS: CONSTITUTIONAL: No fever, no malaise, no fatigue. HEENT: No recent visual problems or hearing problems. Denied any sore throat. CARDIOVASCULAR: No chest pain, orthopnea, PND, no palpitations, no syncope. PULMONARY: No shortness of breath, no cough, no hemoptysis. GASTROINTESTINAL: No diarrhea, no nausea, no vomiting, no abdominal pain. NEUROLOGICAL: No headaches, no weakness, no numbness. HEMATOLOGICAL: Denies any bleeding or petechiae. GENITOURINARY: Denies any burning micturition, frequency, or urgency. MUSCULOSKELETAL/RHEUMATOLOGICAL: Denies any joint pain, swelling, or any muscle pain. ENDOCRINE: Denies any polyuria or polydipsia. The rest of the 14-point review of systems is negative. PHYSICAL EXAMINATION: GENERAL: The patient is alert and oriented x3, not in any acute distress. Well developed, well nourished. HEENT: Pupils are round and equally reacting to light. EOMI. No scleral icterus. No conjunctival pallor. Normocephalic, atraumatic. No pharyngeal erythema. No thyromegaly. CARDIOVASCULAR: S1 and S2 present. No murmurs, rubs, or gallops. PULMONARY: Chest is clear to auscultation, no wheezing or crackles. ABDOMEN: Soft, nontender, nondistended, normoactive bowel sounds. No palpable organomegaly. MUSCULOSKELETAL: No joint swelling or deformity. EXTREMITIES: No cyanosis, clubbing, or pedal edema. NEUROLOGICAL: Gross neurological examination did not reveal any focal deficits. SKIN: No rashes. Assessment Palpitations rule out cardiac arrhythmia Chest pain, troponin negative and cardiology has ruled out an acute coronary syndrome History of testicular cancer History of anxiety and panic attacks Alcohol use GI prophylaxis Plan Cardiology consultation Patient to undergo echocardiogram and stress test today TSH is normal The impression and plan of care has been dictated by Karlene Neumann Nurse Practitioner as directed. Dr. Fransisca MD I have performed a history and physical examination and medical decision making of this patient, discussed the same with the dictator, and agree with the dictators assessment and plan as written, documented as a scribe. Based on total visit time, I have performed more than 50% of this visit. Past Medical History Past Medical History: Cancer, GERD/Reflux Additional Past Medical History / Comment(s): testicle CA History of Any Multi-Drug Resistant Organisms: None Reported Past Surgical History: Appendectomy Additional Past Surgical History / Comment(s): nasal sx, L testicle removed Past Anesthesia/Blood Transfusion Reactions: No Reported Reaction Past Psychological History: Anxiety Smoking Status: Never smoker Past Alcohol Use History: Occasional Additional Past Alcohol Use History / Comment(s): Pt states he only drinks on the weekends, no more than a case Past Drug Use History: None Reported - Past Family History Mother Family Medical History: Cancer, Diabetes Mellitus Father Family Medical History: Coronary Artery Disease (CAD), Myocardial Infarction (HI) Medications and Allergies Home Medications Medication Instructions Recorded Confirmed Type No Known Home Medications 12/03/22 12/03/22 History Allergies Allergy/AdvReac Type Severity Reaction Status Date / Time No Known Allergies Allergy Verified 12/03/22 21:53 Physical Exam Vitals: Vital Signs Temp Pulse Pulse Resp BP BP Pulse Ox 12/04/22 08:11 97.8 F 99 16 143/86 98 12/04/22 03:15 97.9 F 93 14 143/78 97 12/04/22 00:25 97.7 F 106 H 20 145/95 97 12/03/22 23:12 92 16 173/99 98 12/03/22 19:46 97.6 F 121 H 18 153/93 97 Intake and Output 12/03/22 12/04/22 12/04/22 22:59 06:59 14:59 Intake Total 180 Balance 180 Intake: Oral 180 Other: Voiding Method Toilet # Voids 1 1 Weight 83.915 kg 83.915 kg Results CBC & Chem 7: 12/03/22 20:10 12/03/22 20:10 Labs: Abnormal Lab Results - Last 24 Hours (Table) 12/03/22 Range/Units 20:10 Glucose 119 H (74-99) mg/dL Thrombosis Risk Factor Assmnt - Choose All That Apply Each Factor Represents 1 point: Age 41-60 years, Obesity (BMI >25) Other Risk Factors: No Thrombosis Risk Factor Assessment Total Risk Factor Score: 2 Thrombosis Risk Factor Assessment Level: Low Risk Assessment and Plan Time with Patient: Less than 30
--- NOTE | 2022-12-04 13:22 | CA ---
Exercise Stress Test Report Name: Chris Kelly Exam Date: 12/04/2022 11:49 Exam Location: [facility] Stress Ht (in): 67 Wt (lb): 185 BSA: 1.96 Ordering Phys: Malgorzata Weber Referring Phys: SHANNAN, Technologist: Shaheen Neely Age: 46 Gender: M : 1975 Procedure CPT: Indications: CP, heart racing ICD-10 Codes: Patient History: PALPITATIONS, HTN, FAMILY HX OF HEART DISEASE Medications: Meds past 24 hrs: Pretest Chest Pain: STRESS TEST Paulino Protocol Exercise Duration (min:sec): 12:[address] Depressions (mm): 0 Angina Score: 0 Danielson Score: 12 Resting HR (bpm): 102 Peak HR (bpm): 173 Resting BP (mmHg): 140 / 86 Peak BP (mmHg): 219 / 66 MPHR: 174 Target HR: 148 % MPHR: 99 METS: 12.1 Total Dose: Peak Dose: Atropine: Double Product: 67577 BP Response: Stress Termination: MAX EXERTION/TARGET HR Stress Symptoms: NO SYMPTOMS Stress Summary: The patient's target heart rate was achieved ECG ANALYSIS Resting ECG: Sinus rhythm. Normal conduction. No arrhythmias. Normal repolarization. Stress ECG: No ECG evidence of ischemia with exercise. CONCLUSIONS Patient falls into low-risk group (DTS >= +5). This associates the patient with an annual CV mortality <= 0.5%. Exercise capacity very good at >10 METS. No chest discomfort with stress test. Normal ST segment response to stress. Normal electrocardiographic response to exercise with no evidence of exercise-induced ischemia. Dr. Alexandra Carrillo MD (Electronically Signed) Final Date: 04 Dec 2022 13:21
[2022-12-04] MEDS: SODIUM CHLORIDE 0.9% 1,000 ML IV SCH (13:46)
[2022-12-04 16:19] VITALS: BP 137/86; PULSE 90; TEMP 98.1
--- NOTE | 2022-12-04 17:54 | CA ---
Transthoracic Echo Report Name: Chris Kelly Age: 46 Gender: M : 1975 Exam Date: 12/04/2022 14:40 Exam Location: [place] Echo Ht (in): 67 Wt (lb): 185 Ordering Physician: Malgorzata Weber Attending/Referring Phys: [id number], [employer] Developer Javan Townsend RDCS Procedure CPT: Indications: LV function, CP Cardiac Hx: Technical Quality: Fair Contrast 1: Total Dose (mL): Contrast 2: Total Dose (mL): MEASUREMENTS (Male / Female) Normal Values 2D ECHO LV Diastolic Diameter PLAX 4.2 cm 4.2 - 5.9 / 3.9 - 5.3 cm LV Systolic Diameter PLAX 3.0 cm LV Fractional Shortening PLAX 29.4 % IVS Diastolic Thickness 0.7 cm 0.6 - 1.0 / 0.6 - 0.9 cm IVS Systolic Thickness 1.0 cm LVPW Diastolic Thickness 1.2 cm 0.6 - 1.0 / 0.6 - 0.9 cm LVPW Systolic Thickness 1.5 cm LV Relative Wall Thickness 0.5 LVOT Diameter 2.0 cm LA Systolic Diameter LX 3.3 cm 3.0 - 4.0 / 2.7 - 3.8 cm LV Diastolic Volume MOD BP 97.2 cm??? 67 - 155 / 56 - 104 cm??? LV Systolic Volume MOD BP 31.1 cm??? 22 - 58 / 19 - 49 cm??? LV Ejection Fraction MOD BP 68.0 % >= 55 % LV Stroke Volume MOD BP 66.1 cm??? LV Diastolic Volume MOD 4C 96.4 cm??? LV Systolic Volume MOD 4C 28.5 cm??? LV Ejection Fraction MOD 4C 70.5 % LV Stroke Volume MOD 4C 67.9 cm??? LV Diastolic Length 4C 8.4 cm LV Systolic Length 4C 6.4 cm LV Diastolic Volume MOD 2C 91.0 cm??? LV Systolic Volume MOD 2C 34.9 cm??? LV Ejection Fraction MOD 2C 61.6 % LV Stroke Volume MOD 2C 56.1 cm??? LV Diastolic Length 2C 7.8 cm LV Systolic Length 2C 6.4 cm Ascending Aorta Diameter 2.6 cm M-MODE Aortic Root Diameter MM 3.1 cm LA Systolic Diameter MM 2.7 cm LA Ao Ratio MM 0.9 MV E Point Septal Separation 1.5 cm AV Cusp Separation MM 1.8 cm DOPPLER AV Peak Velocity 105.1 cm/s AV Peak Gradient 4.4 mmHg MV Deceleration [place] 557.6 cm/s??? Mitral E Point Velocity 69.1 cm/s Mitral A Point Velocity 55.2 cm/s Mitral E to A Ratio 1.3 MV Deceleration Time 124.0 ms MV E' Velocity 7.8 cm/s Mitral E to MV E' Ratio 8.9 TR Peak Velocity 124.9 cm/s TR Peak Gradient 6.2 mmHg Right Ventricular Systolic Press 16.2 mmHg PV Peak Velocity 89.6 cm/s PV Peak Gradient 3.2 mmHg FINDINGS Left Ventricle Left ventricular ejection fraction is estimated at 55-60 %. Left ventricular cavity size normal. Normal left ventricular diastolic filling pattern. Right Ventricle Normal right ventricular size and function. Right Atrium Normal right atrial size. Left Atrium Normal left atrial size. Mitral Valve Structurally normal mitral valve. No mitral stenosis. Trace to mild mitral regurgitation. Aortic Valve Trileaflet aortic valve. No aortic stenosis. No aortic regurgitation. Tricuspid Valve Mild tricuspid regurgitation.structurally normal tricuspid valve. Pulmonic Valve Structurally normal pulmonic valve. Pericardium Normal pericardium. No pericardial effusion. Aorta Normal size aortic root and proximal ascending aorta. CONCLUSIONS 1. Normal ventricle size and systolic function 2. Mild tricuspid regurgitation with trace to mild mitral regurgitation Previewed by: Dr. Alexandra Carrillo MD (Electronically Signed) Final Date: 04 Dec 2022 17:53
--- NOTE | 2022-12-06 23:31 | P.DS ---
Providers Date of admission: 12/03/22 22:45 Attending physician: Randall Pérez Consults: 12/03/22 22:45 Consult Physician Routine Consulting Provider: Uriel Saavedra Consult Reason/Comments: Chest pain, palpitation, a-fib Do you want consulting provider notified?: Yes Primary care physician: Stated None Hospital Course: Final Diagnosis Palpitations rule out cardiac arrhythmia Chest pain, troponin negative and cardiology has ruled out an acute coronary syndrome Mild tricuspid and trace to mild mitral regurgitation History of testicular cancer History of anxiety and panic attacks Discharge Disposition Patient is stable for discharge. No further chest pain/palpitations. Patient is discharged with event monitor in place for 3 weeks and instructed to follow up with cardiology in 3 weeks time. Blood glucose of 119 on admission recommend to establish care with a PCP on discharge and follow blood glucose. Hospital Course This is a 46 year old male with medical history of gastroesophageal reflux, and testicular cancer. Patient does not follow with a physician. Patient presents to the hospital with complaints of palpitations and heart racing for the last 2 days. Patient reports symptoms with minimal exertion, began on Wednesday when came home from work. Patient then went to the gym in the evening and was using the bench press and began experiencing the fluttering and heart racing again. He r eports no associated shortness of breath. He reports feeling lightheaded and sweaty when his heart is racing. He also had left sided chest pressure. He does have a remote history of anxiety and panic attacks years ago but reports this felt different. Denies any tobacco use, no illicut substance use. 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 He was concerned and felt anxious and came to the hospital for evaluation. No prior cardiac history. He does have a family history of coronary artery disease his father age 67 from a heart attack. At the time of exam patient is resting in bed, he is currently denying chest pain. He is in normal sinus rhythm. Initial EKG reveals normal sinus rhythm with heart rate of 86, no ST or T wave changes. Troponin level is negative x 3. CBC and BMP and completely unremarkable with exception of blood glucose at 119. Patient is admitted for cardiac evaluation. Underwent stress test which is negative, echocardiogram showing normal LV size and systolic function. Mild tricuspid regurgitation and trace to mild mitral regurgitation. Cleared for discharge with close cardiac follow up. Patient is alert x 3 focal neurological exam is negative. Lungs are clear S1 S2 auscultated. Please see medication reconciliation for a list of current medication. Thank you for allowing us to participate in the care of this patient. The impression and plan of care has been dictated by Karlene Neumann, Nurse Practitioner as directed. Dr. Fransisca MD I have performed a history and physical examination and medical decision making of this patient, discussed the same with the dictator, and agree with the dictators assessment and plan as written, documented as a scribe. Based on total visit time, I have performed more than 50% of this visit. Patient Condition at Discharge: Stable Plan - Discharge Summary Discharge Rx Participant: No New Discharge Prescriptions: No Action No Known Home Medications Discharge Medication List No Known Home Medications 12/03/22 [History] Follow up Appointment(s)/Referral(s): Misael Sanchez MD [STAFF PHYSICIAN] - 1 Week (Office staff with call you with an appt ) None,Stated [Primary Care Provider] - 1-2 days Patient Instructions/Handouts: Heart Palpitations (DC) Activity/Diet/Wound Care/Special Instructions: Follow up with Dr Sanchez in 3 weeks when done with event monitor to discuss echocardiogram results Recommend to establish care with a primary care provider Recommend to avoid alcohol Discharge Disposition: HOME SELF-CARE
== END 2022-12-04 17:04 | disposition home or self-care (01) ==
LOC: EC 19:38 → 3SCARD 22:45 → INTOOBSV 22:45 → 3SCARD 23:03
PROVIDERS: ADMIT Hospitalist; ATTEND Hospitalist
DX: R00.2 Palpitations (principal); R00.0 Tachycardia, unspecified; R07.89 Other chest pain; I08.1 Rheumatic disorders of both mitral and tricuspid valves; F10.90 Alcohol use, unspecified, uncomplicated; K21.9 Gastro-esophageal reflux disease without esophagitis; F41.0 Panic disorder [episodic paroxysmal anxiety]; F41.9 Anxiety disorder, unspecified; E66.9 Obesity, unspecified; Z68.29 Body mass index [BMI] 29.0-29.9, adult; Z90.79 Acquired absence of other genital organ(s); Z85.47 Personal history of malignant neoplasm of testis; Z90.49 Acquired absence of other specified parts of digestive tract; Z98.890 Other specified postprocedural states; Z82.49 Family history of ischemic heart disease and other diseases of the circulatory system; Z83.3 Family history of diabetes mellitus
CPT/HCPCS: 96375; 96374; 99285; 36415; 93005; 93017; 93306; 93270; 85379; 80053; 83735; 84443; 84484 ×2; 85025; 85610; 85730; 71046; G0378; J2060; C9113

== ENCOUNTER 2022-12-09 09:54 | Emergency (ER) | payer OTHER ==
--- NOTE | 2022-12-09 10:39 | XR ---
EXAMINATION TYPE: XR chest 2V DATE OF EXAM: 12/09/2022 10:36 AM COMPARISON: Chest radiographs from 12/03/2022 TECHNIQUE: XR chest 2V Frontal and lateral views of the chest. CLINICAL INDICATION:Male, 46 years old with history of Chest Pain; FINDINGS: Lungs/Pleura: There is no evidence of pleural effusion, focal consolidation, or pneumothorax. Pulmonary vascularity: Unremarkable. Heart/mediastinum: Cardiomediastinal silhouette is unremarkable. Musculoskeletal: No acute osseous pathology. IMPRESSION: No acute cardiopulmonary disease/process.
[2022-12-09 10:44] LABS: Basophils % (A) 0 %; Eosinophils % (A) 1 %; HCT 46.6 % (39.0-53.0); HGB 16.5 gm/dL (13.0-17.5); Lymphocytes # (A) 0.7 k/uL (1.0-4.8); Lymphocytes % (A) 11 %; MCH 30.8 pg (25.0-35.0); MCHC 35.4 g/dL (31.0-37.0); MCV 86.9 fL (80.0-100.0); Mean Platelet Volume 7.4; Monocytes # (A) 0.4 k/uL (0-1.0); Monocytes % (A) 6 %; Neutrophils # (A) 5.1 k/uL (1.3-7.7); Neutrophils % (A) 80 %; Platelet Count 182 k/uL (150-450); RBC 5.36 m/uL (4.30-5.90); RDW 12.1 % (11.5-15.5); WBC 6.3 k/uL (3.8-10.6)
[2022-12-09 10:45] LABS: ALT 31 U/L (4-49); AST 33 U/L (17-59); African American GFR (CKD) >90 (>60 ml/min/1.73 sqM); Albumin 5.2 g/dL (3.5-5.0); Alkaline Phosphatase 54 U/L (38-126); Anion Gap 10 mmol/L; Blood Urea Nitrogen 19 mg/dL (9-20); Calcium 10.5 mg/dL (8.4-10.2); Carbon Dioxide 27 mmol/L (22-30); Chloride 103 mmol/L (98-107); Glucose 103 mg/dL (74-99); Non-African American GFR(CKD) 89 (>60 ml/min/1.73 sqM); Sodium 140 mmol/L (137-145); Total Bilirubin 0.9 mg/dL (0.2-1.3); Total Protein 8.5 g/dL (6.3-8.2)
[2022-12-09 10:57] LABS: INR 1.1 (<1.2)
[2022-12-09 10:58] LABS: Partial Thromboplastin Time 22.3 sec (22.0-30.0)
--- NOTE | 2022-12-09 12:54 | ED ---
General Adult HPI - General Chief complaint: Chest Pain Stated complaint: Chest Pain Time Seen by Provider: 12/09/22 10:04 Source: patient, RN notes reviewed, old records reviewed Mode of arrival: ambulatory Limitations: no limitations - History of Present Illness Initial comments: 46 -year-old male presenting for chest discomfort. Patient had recent admission with stress test. He developed chest pressure over the past 24-48 hours. Patient is currently wearing a monitor, he has a follow-up appointment for the end of the month with cardiology. He denies diaphoresis or vomiting. No cough or dyspnea. - Related Data Home Medications Medication Instructions Recorded Confirmed No Known Home Medications 12/03/22 12/09/22 Allergies Allergy/AdvReac Type Severity Reaction Status Date / Time No Known Allergies Allergy Verified 12/09/22 10:51 Review of Systems ROS Statement: Those systems with pertinent positive or pertinent negative responses have been documented in the HPI. ROS Other: All systems not noted in ROS Statement are negative. Past Medical History Past Medical History: Cancer, GERD/Reflux Additional Past Medical History / Comment(s): testicle CA History of Any Multi-Drug Resistant Organisms: None Reported Past Surgical History: Appendectomy Additional Past Surgical History / Comment(s): nasal sx, L testicle removed Past Anesthesia/Blood Transfusion Reactions: No Reported Reaction Past Psychological History: Anxiety Smoking Status: Never smoker Past Alcohol Use History: Occasional Past Drug Use History: None Reported - Past Family History Mother Family Medical History: Cancer, Diabetes Mellitus Father Family Medical History: Coronary Artery Disease (CAD), Myocardial Infarction ([place]) General Exam Limitations: no limitations General appearance: alert, in no apparent distress Head exam: Present: atraumatic, normocephalic Eye exam: Present: normal appearance, PERRL ENT exam: Present: normal exam Neck exam: Present: normal inspection. Absent: tenderness, meningismus Respiratory exam: Present: normal lung sounds bilaterally. Absent: respiratory distress, wheezes Cardiovascular Exam: Present: regular rate, normal rhythm GI/Abdominal exam: Present: soft. Absent: distended, tenderness Extremities exam: Present: normal inspection, normal capillary refill. Absent: pedal edema, calf tenderness Neurological exam: Present: alert, oriented X3 Psychiatric exam: Present: normal affect, normal mood Skin exam: Present: warm, dry, intact. Absent: cyanosis, diaphoretic Course Vital Signs 12/09/22 12/09/22 12/09/22 09:57 10:15 11:00 Temperature 97.6 F Pulse Rate 83 78 64 Respiratory 16 11 L 16 Rate Blood Pressure 167/83 150/95 150/95 O2 Sat by Pulse 98 95 Oximetry 12/09/22 12/09/22 12/09/22 12:00 13:00 14:00 Temperature 98.0 F Pulse Rate 71 70 Respiratory 12 14 15 Rate Blood Pressure 150/95 150/95 123/78 O2 Sat by Pulse 98 97 98 Oximetry - Reevaluation(s) Reevaluation #1: 12/09/22 1300 I discussed case with Dr. Saavedra, covering for cardiology, recommends 3 hour troponin and if negative discharge with close outpatient follow-up. EKG Findings - EKG Comments: EKG Findings:: EKG: Sinus rhythm rate of 79, KS interval 154, QRS duration 98, QTC 392, no ST segment elevation. - EKG Results: EKG: interpreted by [facility] Medical Decision Making - Medical Decision Making Was pt. sent in by a medical professional or institution (, PA, SUPERVISOR FORMING [employer] TEMPERING, urgent care, hospital, or penitentiary...) When possible be specific @ -No Did you speak to anyone other than the patient for history (EMS, parent, family, police, friend...)? What history was obtained from this source @ -No Did you review nursing and triage notes (agree or disagree)? Why? @ -I reviewed and agree with nursing and triage notes Were old charts reviewed (outside hosp., previous admission, EMS record, old EKG, old radiological studies, urgent care reports/EKG's, penitentiary records)? Report findings @ -No old charts were reviewed Differential Diagnosis (chest pain, altered mental status, abdominal pain women, abdominal pain men, vaginal bleeding, weakness, fever, dyspnea, syncope, headache, dizziness, GI bleed, back pain, seizure, CVA, palpatations, mental health, musculoskeletal)? @ Differential Chest Pain: Stable Angina, Unstable Angina, STEMI, NSTEMI Aortic Dissection, Pneumothorax, Musculoskeletal, Esophageal Spasm GERD, Cholecystitis, Pancreatitis, Zoster, this is not meant to be an all-inclusive list. EKG interpreted by me (3pts min.). @ -As above X-rays interpreted by me (1pt min.). @ Chest x-ray negative for any acute findings CT interpreted by me (1pt min.). @ -None done U/S interpreted by me (1pt. min.). @ -None done What testing was considered but not performed or refused? (CT, X-rays, U/S, labs)? Why? @ -None What meds were considered but not given or refused? Why? @ -None Did you discuss the management of the patient with other professionals (professionals i.e. , PA, SUPERVISOR FORMING [employer] TEMPERING, lab, RT, psych nurse, oncology social work, funeral greeter, teacher, juvenile officer, case assembler)? Give summary @ - Was smoking cessation discussed for >3mins.? @ -No Was critical care preformed (if so, how long)? @ -No Were there social determinants of health that impacted care today? How? (Homelessness, low income, unemployed, alcoholism, drug addiction, transportation, low edu. Level, literacy, decrease access to med. care, chcf, rehab)? @ -No Was there de-escalation of care discussed even if they declined (Discuss DNR or withdrawal of care, Hospice)? DNR status @ -No What co-morbidities impacted this encounter? (DM, HTN, Smoking, COPD, CAD, Cancer, CVA, ARF, Chemo, Hep., AIDS, mental health diagnosis, sleep apnea, morbid obesity)? @ -None Was patient admitted / discharged? Hospital course, mention meds given and route , prescriptions, significant lab abnormalities, going to OR and other pertinent info. @ -46 yo male presents for reevaluation of chest pressure. EKG sinus rhythm without ST segment elevation, chest x-ray is clear. Normal CBC, CMP showing a mild hypercalcemia at 10.5 no other acute findings. Initial troponin is negative. I discussed case with cardiology who recommends a second troponin this is also negative. I did offer this patient observation for cartilage ALLERGY consultation and he declines at this time. He is reassured with the testing and will continue outpatient follow-up. Undiagnosed new problem with uncertain prognosis? @ -No Drug Therapy requiring intensive monitoring for toxicity (Heparin, Nitro, In sulin, Cardizem)? @ -No Were any procedures done? @ -No Diagnosis/symptom? @ Chest pain Acute, or Chronic, or Acute on Chronic? @ Acute Uncomplicated (without systemic symptoms) or Complicated (systemic symptoms)? @ -Complicated Side effects of treatment? @ -No Exacerbation, Progression, or Severe Exacerbation? @ -No Poses a threat to life or bodily function? How? (Chest pain, [place], [place], pneumonia, PE, COPD, DKA, ARF, appy, cholecystitis, CVA, Diverticulitis, Homicidal, Suicidal, threat to staff... and all critical care pts) @ yes, chest pain - Lab Data Result diagrams: 12/09/22 10:15 12/09/22 10:15 Lab Results 12/09/22 12/09/22 12/09/22 Range/Units 10:15 10:15 10:15 WBC 6.3 (3.8-10.6) k/uL RBC 5.36 (4.30-5.90) m/uL Hgb 16.5 (13.0-17.5) gm/dL Hct 46.6 (39.0-53.0) % MCV 86.9 (80.0-100.0) fL MCH 30.8 (25.0-35.0) pg MCHC 35.4 (31.0-37.0) g/dL RDW 12.1 (11.5-15.5) % Plt Count 182 (150-450) k/uL MPV 7.4 Neutrophils % 80 % Lymphocytes % 11 % Monocytes % 6 % Eosinophils % 1 % Basophils % 0 % Neutrophils # 5.1 (1.3-7.7) k/uL Lymphocytes # 0.7 L (1.0-4.8) k/uL Monocytes # 0.4 (0-1.0) k/uL Eosinophils # 0.0 (0-0.7) k/uL Basophils # 0.0 (0-0.2) k/uL PT 11.0 (9.0-12.0) sec INR 1.1 (<1.2) APTT 22.3 (22.0-30.0) sec Sodium 140 (137-145) mmol/L Potassium 4.0 (3.5-5.1) mmol/L Chloride 103 (98-107) mmol/L Carbon Dioxide 27 (22-30) mmol/L Anion Gap 10 mmol/L BUN 19 (9-20) mg/dL Creatinine 1.01 (0.66-1.25) mg/dL Est GFR (CKD-EPI)AfAm >90 (>60 ml/min/1.73 sqM) Est GFR (CKD-EPI)NonAf 89 (>60 ml/min/1.73 sqM) Glucose 103 H (74-99) mg/dL Calcium 10.5 H (8.4-10.2) mg/dL Magnesium 2.0 (1.6-2.3) mg/dL Total Bilirubin 0.9 (0.2-1.3) mg/dL AST 33 (17-59) U/L ALT 31 (4-49) U/L Alkaline Phosphatase 54 (38-126) U/L Troponin I (0.000-0.034) ng/mL Total Protein 8.5 H (6.3-8.2) g/dL Albumin 5.2 H (3.5-5.0) g/dL 12/09/22 12/09/22 Range/Units 10:15 13:25 WBC (3.8-10.6) k/uL RBC (4.30-5.90) m/uL Hgb (13.0-17.5) gm/dL Hct (39.0-53.0) % MCV (80.0-100.0) fL MCH (25.0-35.0) pg MCHC (31.0-37.0) g/dL RDW (11.5-15.5) % Plt Count (150-450) k/uL MPV Neutrophils % % Lymphocytes % % Monocytes % % Eosinophils % % Basophils % % Neutrophils # (1.3-7.7) k/uL Lymphocytes # (1.0-4.8) k/uL Monocytes # (0-1.0) k/uL Eosinophils # (0-0.7) k/uL Basophils # (0-0.2) k/uL PT (9.0-12.0) sec INR (<1.2) APTT (22.0-30.0) sec Sodium (137-145) mmol/L Potassium (3.5-5.1) mmol/L Chloride (98-107) mmol/L Carbon Dioxide (22-30) mmol/L Anion Gap mmol/L BUN (9-20) mg/dL Creatinine (0.66-1.25) mg/dL Est GFR (CKD-EPI)AfAm (>60 ml/min/1.73 sqM) Est GFR (CKD-EPI)NonAf (>60 ml/min/1.73 sqM) Glucose (74-99) mg/dL Calcium (8.4-10.2) mg/dL Magnesium (1.6-2.3) mg/dL Total Bilirubin (0.2-1.3) mg/dL AST (17-59) U/L ALT (4-49) U/L Alkaline Phosphatase (38-126) U/L Troponin I <0.012 <0.012 (0.000-0.034) ng/mL Total Protein (6.3-8.2) g/dL Albumin (3.5-5.0) g/dL Disposition Clinical Impression: Chest pain Disposition: HOME SELF-CARE Condition: Good Instructions (If sedation given, give patient instructions): Chest Pain (ED) Is patient prescribed a controlled substance at d/c from ED?: No Referrals: Misael Sanchez MD [STAFF PHYSICIAN] - 12/30/22 2:45 pm None,Stated [Primary Care Provider] - 1-2 days
[2022-12-09 13:04] VITALS: BP 123/78
[2022-12-09 14:29] VITALS: PULSE 70; RESP 15
[2022-12-09 14:39] VITALS: TEMP 98
== END 2022-12-09 14:38 | disposition home or self-care (01) ==
LOC: EC 09:54
DX: R07.89 Other chest pain (principal); Z86.59 Personal history of other mental and behavioral disorders
CPT/HCPCS: 36415; 71046; 80053; 83735; 84484; 85025; 85610; 85730; 93005; 99285

== ENCOUNTER → 2023-01-30 | Outpatient (CLI) | payer OTHER ==
[2023-01-30 23:18] LABS: ALT 23 U/L (10-49); AST 17 U/L (14-35); Chol/HDL Ratio 4.73 Ratio; LDL Cholesterol,Calculated 151.1 mg/dL (0.0-131.0)
== END | disposition home or self-care (01) ==
LOC: LABWHC1 08:54
PROVIDERS: ATTEND Internal Medicine Interventional Cardiology
DX: E78.00 Pure hypercholesterolemia, unspecified (principal)
CPT/HCPCS: 36415; 80061; 84450; 84460

== ENCOUNTER 2023-03-08 11:40 | Observation (INO) | payer OTHER ==
[2023-03-08] MEDS ORDERED: ASPIRIN 81 MG PO STA (12:14)
[2023-03-08] MEDS ORDERED: NITROGLYCERIN OINT 1 INCH/GM PACKET TOPICAL STA (12:14)
[2023-03-08 12:23] LABS: Basophils % (A) 0 %; Eosinophils # (A) 0.1 k/uL (0-0.7); Eosinophils % (A) 1 %; HCT 42.7 % (39.0-53.0); Lymphocytes # (A) 0.9 k/uL (1.0-4.8); Lymphocytes % (A) 13 %; MCH 31.7 pg (25.0-35.0); MCHC 35.2 g/dL (31.0-37.0); MCV 90.1 fL (80.0-100.0); Mean Platelet Volume 7.7; Monocytes # (A) 0.5 k/uL (0-1.0); Monocytes % (A) 7 %; Neutrophils # (A) 5.3 k/uL (1.3-7.7); Neutrophils % (A) 78 %; Platelet Count 152 k/uL (150-450); RBC 4.75 m/uL (4.30-5.90); WBC 6.8 k/uL (3.8-10.6)
--- NOTE | 2023-03-08 12:25 | ED ---
Chest Pain HPI - General Chief Complaint: Chest Pain Stated Complaint: chest pain Time Seen by Provider: 03/08/23 12:05 Source: patient Mode of arrival: ambulatory Limitations: no limitations - History of Present Illness Initial Comments: Patient is a 47-year-old male presents the emergency room with complaints of intermittent midsternal chest pain that is radiating to his back. He reports the symptom has been ongoing intermittently over the last 3 days. He reports no chest pain at the time of exam or any associated symptoms including any shortness breath, abdominal pain, nausea, vomiting, diaphoresis, headache, dizziness, fevers or chills. He reports that he took some antacid medication to help treat his symptoms with some relief but it was temporary and the relief was not significant. He is unable to identify any other aggravating or alleviating factors. He reports his symptoms are similar to when he presented to the hospital in November for evaluation. He underwent a cardiac catheterization at the age of 25 due to significant family history of CAD with his grandfather dying at the age of 55 and father dying in his early 60s of myocardial infarctions. He is a nonsmoker but does have a past medical history significant for hypertension. He also has a past medical history significant for testicular cancer and GERD. - Related Data Home Medications Medication Instructions Recorded Confirmed No Known Home Medications 12/03/22 12/09/22 Allergies Allergy/AdvReac Type Severity Reaction Status Date / Time No Known Allergies Allergy Verified 03/08/23 11:44 Review of Systems ROS Statement: Those systems with pertinent positive or pertinent negative responses have been documented in the HPI. ROS Other: All systems not noted in ROS Statement are negative. Past Medical History Past Medical History: Cancer, GERD/Reflux, Hyperlipidemia Additional Past Medical History / Comment(s): testicle CA History of Any Multi-Drug Resistant Organisms: None Reported Past Surgical History: Appendectomy Additional Past Surgical History / Comment(s): nasal sx, L testicle removed Past Anesthesia/Blood Transfusion Reactions: No Reported Reaction Past Psychological History: Anxiety Smoking Status: Never smoker Past Alcohol Use History: Occasional Past Drug Use History: None Reported - Past Family History Mother Family Medical History: Cancer, Diabetes Mellitus Father Family Medical History: Coronary Artery Disease (CAD), Myocardial Infarction ([place]) General Exam Limitations: no limitations General appearance: alert, in no apparent distress Head exam: Present: atraumatic, normocephalic, normal inspection Eye exam: Present: normal appearance, PERRL, EOMI. Absent: scleral icterus, conjunctival injection, periorbital swelling ENT exam: Present: normal exam, mucous membranes moist Neck exam: Present: normal inspection Respiratory exam: Present: normal lung sounds bilaterally. Absent: respiratory distress, wheezes, rales, rhonchi, stridor Cardiovascular Exam: Present: regular rate, normal rhythm, normal heart sounds. Absent: systolic murmur, diastolic murmur, rubs, gallop, clicks GI/Abdominal exam: Present: soft, normal bowel sounds. Absent: distended, tenderness, guarding, rebound, rigid Extremities exam: Present: normal inspection, normal capillary refill. Absent: pedal edema, joint swelling Back exam: Present: normal inspection, full ROM Neurological exam: Present: alert, oriented X3, CN II-XII intact Psychiatric exam: Present: normal affect, normal mood Skin exam: Present: warm, dry, intact, normal color. Absent: rash Course Vital Signs 03/08/23 03/08/23 03/08/23 11:41 12:00 12:15 Temperature 98.8 F Pulse Rate 95 76 89 Respiratory 18 14 16 Rate Blood Pressure 163/88 157/91 159/102 O2 Sat by Pulse 97 98 99 Oximetry 03/08/23 03/08/23 03/08/23 12:30 12:45 13:00 Temperature Pulse Rate 84 79 87 Respiratory 16 16 13 Rate Blood Pressure 159/94 169/99 150/91 O2 Sat by Pulse 97 98 97 Oximetry 03/08/23 13:15 Temperature Pulse Rate 77 Respiratory 15 Rate Blood Pressure 153/96 O2 Sat by Pulse 97 Oximetry Chest Pain MDM - MDM Was pt. sent in by a medical professional or institution (, PA, OUTSIDE PARTS SALESMAN, urgent care, hospital, or retirement...) When possible be specific @ -No Did you speak to anyone other than the patient for history (EMS, parent, family, police, friend...)? What history was obtained from this source @ -No Did you review nursing and triage notes (agree or disagree)? Why? @ -I reviewed and agree with nursing and triage notes Were old charts reviewed (outside hosp., previous admission, EMS record, old EKG, old radiological studies, urgent care reports/EKG's, retirement records)? Report findings @ -Yes, I reviewed EKG on file from November 2022. Differential Diagnosis (chest pain, altered mental status, abdominal pain women, abdominal pain men, vaginal bleeding, weakness, fever, dyspnea, syncope, headache, dizziness, GI bleed, back pain, seizure, CVA, palpatations, mental health, musculoskeletal)? @ -Differential Chest Pain: Stable Angina, Unstable Angina, STEMI, NSTEMI Aortic Dissection, Pneumothorax, Musculoskeletal, Esophageal Spasm GERD, Cholecystitis, Pancreatitis, Zoster, this is not meant to be an all-inclusive list. EKG interpreted by me (3pts min.). @ -Sinus rhythm, incomplete right bundle branch block which has progressed since EKG on 11/2022. Ventricular rate 82 bpm, NH interval 169 ms, QRS duration 111 ms, QT/QTC 371/409 ms, PRT axes 66, 42, 31. X-rays interpreted by me (1pt min.). @ -Chest x-ray 2 view no acute cardiopulmonary process, no consolidation or cardiomegaly. CT interpreted by me (1pt min.). @ -None done U/S interpreted by me (1pt. min.). @ -None done What testing was considered but not performed or refused? (CT, X-rays, U/S, labs)? Why? @ -None What meds were considered but not given or refused? Why? @ -None Did you discuss the management of the patient with other professionals (professionals i.e. , PA, OUTSIDE PARTS SALESMAN, lab, RT, psych nurse, rn social work, security systems engineer, teacher, aoc plans intelligence officer chief, oil field caser)? Give summary @ -Yes, spoke with Dr. Rosario regarding recommendation of observation admission for further evaluation and treatment of chest pain with consult to cardiology, he is accepting of admission and denies any further orders at this time. Was smoking cessation discussed for >3mins.? @ -No Was critical care preformed (if so, how long)? @ -No Were there social determinants of health that impacted care today? How? (Homelessness, low income, unemployed, alcoholism, drug addiction, transportation, low edu. Level, literacy, decrease access to med. care, chcf, rehab)? @ -No Was there de-escalation of care discussed even if they declined (Discuss DNR or withdrawal of care, Hospice)? DNR status @ -No What co-morbidities impacted this encounter? (DM, HTN, Smoking, COPD, CAD, Cancer, CVA, ARF, Chemo, Hep., AIDS, mental health diagnosis, sleep apnea, morbid obesity)? @ -None Was patient admitted / discharged? Hospital course, mention meds given and route, prescriptions, significant lab abnormalities, going to OR and other pertinent info. @ -47-year-old male presenting to the emergency room with complaints of intermittent chest pain radiating into his back which is not present on exam without any associated symptoms. He reports comes and goes. No aggravating or alleviating factors at this time. Progression of incomplete right bundle branch block noted since last EKG in November. Will start workup for chest pain with chest x-ray, CBC, CMP, troponin and magnesium. Will give 324 mg of aspirin and apply half an inch of Nitropaste in the setting of elevated blood pressure of 160s. CBC with low lymphocytes at 0.9 otherwise no abnormalities. Coags and d-dimer negative. CMP with elevated glucose at 132. No other abnormalities on CMP with normal electrolytes potassium 3.6, magnesium 2.0, normal renal function. Liver function normal. Troponin negative. Chest x-ray shows no acute cardiopulmonary disease. Patient with recurrence of chest pain and slight anxiety will give morphine for pain and relaxation advising recommendation of observation stay for repeat blood work and further monitoring/evaluation by cardiology. Patient is agreeable to this plan. Spoke with Dr. Rosario regarding recommendation of observation admission for further evaluation and treatment of chest pain with consult to cardiology, he is accepting of admission and denies any further orders at this time. Will admit patient in stable condition to observation unit under sound physicians with consult to cardiology for further evaluation and treatment of chest pain. Undiagnosed new problem with uncertain prognosis? @ -No Drug Therapy requiring intensive monitoring for toxicity (Heparin, Nitro, Insulin, Cardizem)? @ -No Were any procedures done? @ -No Diagnosis/symptom? @ -Chest pain Acute, or Chronic, or Acute on Chronic? @ -Acute Uncomplicated (without systemic symptoms) or Complicated (systemic symptoms)? @ -Complicated Side effects of treatment? @ -No Exacerbation, Progression, or Severe Exacerbation? @ -No Poses a threat to life or bodily function? How? (Chest pain, [place], [place], pneumonia, PE, COPD, DKA, ARF, appy, cholecystitis, CVA, Diverticulitis, Homicidal, Suicidal, threat to staff... and all critical care pts) @ -Yes, chest pain with multiple risk factors for coronary artery disease. Case discussed with Dr. Lopez Disposition Clinical Impression: Chest pain Disposition: ADMITTED IP TO THIS HOSP Condition: Stable Referrals: None,Stated [Primary Care Provider] - 1-2 days Time of Disposition: 13:35
--- NOTE | 2023-03-08 12:31 | XR ---
EXAMINATION TYPE: XR chest 2V DATE OF EXAM: 03/08/2023 12:26 PM COMPARISON: Chest radiographs from 12/09/2022. TECHNIQUE: XR chest 2V Frontal and lateral views of the chest. CLINICAL INDICATION:Male, 47 years old with history of Chest Pain; FINDINGS: Lungs/Pleura: There is no evidence of pleural effusion, focal consolidation, or pneumothorax. Pulmonary vascularity: Unremarkable. Heart/mediastinum: Cardiomediastinal silhouette is unremarkable. Musculoskeletal: No acute osseous pathology. IMPRESSION: No acute cardiopulmonary disease/process.
[2023-03-08 12:36] LABS: ALT 27 U/L (4-49); AST 26 U/L (17-59); African American GFR (CKD) >90 (>60 ml/min/1.73 sqM); Albumin 4.7 g/dL (3.5-5.0); Alkaline Phosphatase 50 U/L (38-126); Anion Gap 7 mmol/L; Blood Urea Nitrogen 20 mg/dL (9-20); Calcium 9.3 mg/dL (8.4-10.2); Carbon Dioxide 26 mmol/L (22-30); Chloride 104 mmol/L (98-107); Glucose 132 mg/dL (74-99); Non-African American GFR(CKD) >90 (>60 ml/min/1.73 sqM); Potassium 3.6 mmol/L (3.5-5.1); Sodium 137 mmol/L (137-145); Total Bilirubin 0.8 mg/dL (0.2-1.3); Total Protein 7.5 g/dL (6.3-8.2)
[2023-03-08 12:41] LABS: Prothrombin Time 10.9 sec (9.0-12.0)
[2023-03-08 12:42] LABS: Partial Thromboplastin Time 23.4 sec (22.0-30.0)
[2023-03-08] MEDS ORDERED: ACETAMINOPHEN TAB 325 MG TAB PO PRN (13:26)
[2023-03-08] MEDS ORDERED: MORPHINE SULFATE 4 MG/ML SYRINGE IVP STA (13:26)
[2023-03-08] MEDS ORDERED: NALOXONE 0.4 MG/ML 1 ML VIAL IV PRN (13:26)
[2023-03-08] MEDS ORDERED: HYDROcodone/APAP 5-325MG 1 EACH TAB PO PRN (13:26)
[2023-03-08] MEDS ORDERED: MORPHINE SULFATE 4 MG/ML SYRINGE IV PRN (13:26)
[2023-03-08] MEDS ORDERED: ALPRAZolam 1 MG TAB PO PRN (16:17)
--- NOTE | 2023-03-08 16:17 | P.HPIM ---
History of Present Illness H&P Date: 03/08/23 Patient is a 47-year-old male with PMH of testicular cancer, hypertension, GERD, dyslipidemia presents the ED for chest pain. Patient reports chest pain that has been ongoing for the past week progressively getting worse. Pain is midsternal, pressure-like and sharp in nature radiating to the back. He denies any shortness of breath, diaphoresis, palpitations or lightheadedness. He reports a signif icant family history of CAD with his grandfather dying at the age of 55 from an [place] and his father dying in the early 60s of [place]. In the ED, his vital signs are stable. CBC was unremarkable. INR was 1. D- dimer was 0.2. CMP showed glucose 132. Troponin was less than 0.012. Chest x- ray was negative. EKG showed sinus rhythm with right bundle branch block. Patient is admitted for chest pain, rule out acute coronary syndrome and cardiology consultation. General: non toxic, no distress, appears at stated age Derm: warm, dry Head: atraumatic, normocephalic, symmetric Eyes: EOMI, no lid lag, anicteric sclera Cardiovascular: S1S2 reg, no murmur Lungs: CTA bilateral, no rhonchi, no rales , no accessory muscle use Ext: no gross muscle atrophy, no edema, no contractures Neuro: no focal neuro deficits Psych: Alert, oriented, appropriate affect Chest pain Chronic conditions: Testicular cancer, hypertension, GERD, dyslipidemia Based on my assessment of this patient, this patient meets a high complexity level of care. Patient has an acute diagnosis of chest pain that poses a threat to life or bodily function. He has an extensive family history which puts him at high risk. Chest pain: Trend troponin/EKG to rule out acute coronary syndrome. His d-dimer is negative, low concerns for PE. Stress test 11/2022 negative. Telemetry monitoring. Cardiology consulted. I have reviewed the following window covering sales consultant notes: I have reviewed the results of the following tests: CBC, CMP, D-Dimer, Troponin, INR, CXR. I have ordered the following tests: Troponin. I have discussed the care of this patient with the following independent historian: I have independently interpreted the following test below: EKG as above. I have discussed the management of this patient with the following physician: Case discussed with the ED provider in detail. Past Medical History Past Medical History: Cancer, GERD/Reflux, Hyperlipidemia Additional Past Medical History / Comment(s): testicle CA History of Any Multi-Drug Resistant Organisms: None Reported Past Surgical History: Appendectomy Additional Past Surgical History / Comment(s): nasal sx, L testicle removed Past Anesthesia/Blood Transfusion Reactions: No Reported Reaction Past Psychological History: Anxiety Smoking Status: Never smoker Past Alcohol Use History: Occasional Past Drug Use History: None Reported - Past Family History Mother Family Medical History: Cancer, Diabetes Mellitus Father Family Medical History: Coronary Artery Disease (CAD), Myocardial Infarction ([place]) Medications and Allergies Home Medications Medication Instructions Recorded Confirmed Type Atorvastatin [Lipitor] 40 mg PO HS 03/08/23 03/08/23 History Allergies Allergy/AdvReac Type Severity Reaction Status Date / Time No Known Allergies Allergy Verified 03/08/23 14:05 Physical Exam Vitals: Vital Signs Temp Pulse Resp BP Pulse Ox 03/08/23 14:15 78 21 142/90 97 03/08/23 14:00 87 15 141/90 95 03/08/23 13:45 75 13 134/87 96 03/08/23 13:30 82 17 142/89 97 03/08/23 13:15 77 15 153/96 97 03/08/23 13:00 87 13 150/91 97 03/08/23 12:45 79 16 169/99 98 03/08/23 12:30 84 16 159/94 97 03/08/23 12:15 89 16 159/102 99 03/08/23 12:00 76 14 157/91 98 03/08/23 11:41 98.8 F 95 18 163/88 97 Intake and Output 03/07/23 03/08/23 03/08/23 22:59 06:59 14:59 Other: Weight 81.647 kg Results CBC & Chem 7: 03/08/23 12:16 03/08/23 12:16 Labs: Abnormal Lab Results - Last 24 Hours (Table) 03/08/23 03/08/23 Range/Units 12:16 12:16 Lymphocytes # 0.9 L (1.0-4.8) k/uL Glucose 132 H (74-99) mg/dL
[2023-03-08] MEDS ORDERED: ATORVASTATIN 40 MG TAB PO SCH (21:00)
[2023-03-09 08:29] VITALS: BP 121/78; PULSE 63; RESP 16; TEMP 97.7
--- NOTE | 2023-03-09 10:31 | P.CRDCN ---
History of Present Illness Consult date: 03/09/23 Consult reason: chest pain History of present illness: History of present illness: This is a 47-year-old male patient of With past medical history of testicular cancer in remission, white coat syndrome and hypertension. He is not currently on any antihypertensive medications. We have been asked to evaluate the patient for chest pain. Patient states that he has left-sided chest pain that has been coming and going not related to activity. He states it is fine now and has relieved. He normally is on a treadmill he tries to do 3 times a week for 45 minutes at 3.9 mph his last time was on . Patient does not have any chest pain at that time. He also lifts weights. He is concerned that his chest pain is related to stress and anxiety. Initially, patient's blood pressures were elevated up to 159/102. Patient received Nitropaste in the emergency center. Blood pressure is currently 121/78. EKG sinus rhythm Chest x-ray: No acute process Troponin negative 3. CBC INR, CMP unremarkable except for glucose of 132. Home cardiac medications: Atorvastatin 40 mg daily Echocardiogram 12/04/2022 performed in the office revealed normal EF, mild MR, mild TR Exercise stress test 12/04/2022 performed in the office was normal. Review Of Systems: At the time of my evaluation: Constitutional: No fever, no chills. No weakness, fatigue or lethargy. EENT: No headache. No dizziness. Lungs: No shortness of breath, cough, no sputum production. No wheezing. Cardiovascular: No chest pain, no lower extremity edema. No palpitations. No syncopal episodes. Abdominal: No abdominal pain. No nausea, vomiting. No diarrhea. Musculoskeletal: No myalgias. No muscle weakness, no frequent falls. No back pain. No neck pain. Integumentary: No wounds. No rash. No unusual bruising. Neurologic: No aphasia. No facial droop. No change in mentation. Reports anxiety. Physical examination: Gen: This is a 47-year-old male. He is resting but appears to be comfortable and in no acute distress VS: reviewed HEENT: Head is atraumatic, normocephalic. Pupils equal, round. Sclerae is anicteric. NECK: Supple. No JVD. . LUNGS: Clear to auscultation. No wheezes or rhonchi. No intercostal retractions. HEART: Regular rate and rhythm. No murmur. ABDOMEN: Soft No tenderness. EXTREMITIES: No pedal edema. No calf tenderness. NEUROLOGICAL: Patient is awake, alert and oriented x3. Assessment: Chest pain, acute coronary syndrome ruled out, chest pain most likely due to musculoskeletal Hypertension Plan: Continue patient on atorvastatin Start patient on losartan 25 mg at bedtime Increase patient's activity, ambulate and if no further symptoms, patient is cleared for discharge. Patient may follow-up with Dr. Sanchez in the office in one to 2 weeks. Thank you kindly for this consultation. Nurse practitioner note has been reviewed, I agree with documented findings and plan of care. Patient was seen and examined. Past Medical History Past Medical History: Cancer, GERD/Reflux, Hyperlipidemia Additional Past Medical History / Comment(s): testicle CA History of Any Multi-Drug Resistant Organisms: None Reported Past Surgical History: Appendectomy Additional Past Surgical History / Comment(s): nasal sx, L testicle removed Past Anesthesia/Blood Transfusion Reactions: No Reported Reaction Past Psychological History: Anxiety Smoking Status: Never smoker Past Alcohol Use History: Occasional Past Drug Use History: None Reported - Past Family History Mother Family Medical History: Cancer, Diabetes Mellitus Father Family Medical History: Coronary Artery Disease (CAD), Myocardial Infarction (RI) Medications and Allergies Home Medications Medication Instructions Recorded Confirmed Type Atorvastatin [Lipitor] 40 mg PO HS 03/08/23 03/08/23 History Allergies Allergy/AdvReac Type Severity Reaction Status Date / Time No Known Allergies Allergy Verified 03/08/23 14:05 Physical Exam Vitals: Vital Signs Temp Pulse Pulse Resp BP BP Pulse Ox 03/09/23 02:18 97.8 F 76 15 129/68 97 03/08/23 19:21 97.5 F L 84 16 143/75 95 03/08/23 15:00 98.4 F 64 16 148/82 100 03/08/23 14:15 78 21 142/90 97 03/08/23 14:00 87 15 141/90 95 03/08/23 13:45 75 13 134/87 96 03/08/23 13:30 82 17 142/89 97 03/08/23 13:15 77 15 153/96 97 03/08/23 13:00 87 13 150/91 97 03/08/23 12:45 79 16 169/99 98 03/08/23 12:30 84 16 159/94 97 03/08/23 12:15 89 16 159/102 99 03/08/23 12:00 76 14 157/91 98 03/08/23 11:41 98.8 F 95 18 163/88 97 Intake and Output 03/08/23 03/09/23 03/09/23 22:59 06:59 14:59 Other: # Voids 1 2 Weight 81.647 kg Results 03/08/23 12:16 03/08/23 12:16 Cardiac Enzymes 03/08/23 03/08/23 03/08/23 Range/Units 12:16 12:16 15:39 AST 26 (17-59) U/L Troponin I <0.012 <0.012 (0.000-0.034) ng/mL 03/08/23 Range/Units 18:26 AST (17-59) U/L Troponin I <0.012 (0.000-0.034) ng/mL Coagulation 03/08/23 Range/Units 12:16 PT 10.9 (9.0-12.0) sec APTT 23.4 (22.0-30.0) sec CBC 03/08/23 Range/Units 12:16 WBC 6.8 (3.8-10.6) k/uL RBC 4.75 (4.30-5.90) m/uL Hgb 15.0 (13.0-17.5) gm/dL Hct 42.7 (39.0-53.0) % Plt Count 152 (150-450) k/uL Comprehensive Metabolic Panel 03/08/23 Range/Units 12:16 Sodium 137 (137-145) mmol/L Potassium 3.6 (3.5-5.1) mmol/L Chloride 104 (98-107) mmol/L Carbon Dioxide 26 (22-30) mmol/L BUN 20 (9-20) mg/dL Creatinine 0.95 (0.66-1.25) mg/dL Glucose 132 H (74-99) mg/dL Calcium 9.3 (8.4-10.2) mg/dL AST 26 (17-59) U/L ALT 27 (4-49) U/L Alkaline Phosphatase 50 (38-126) U/L Total Protein 7.5 (6.3-8.2) g/dL Albumin 4.7 (3.5-5.0) g/dL Current Medications Generic Name Dose Route Start Last Admin Trade Name Freq PRN Reason Stop Dose Admin Acetaminophen 650 mg 03/08/23 13:26 Acetaminophen Tab 325 Mg Tab PO Q6HR PRN Mild Pain or Fever > 100.5 Hydrocodone Bitart/Acetaminophen 1 each 03/08/23 13:26 Hydrocodone/Apap 5-325mg 1 Each Tab PO Q4HR PRN Moderate Pain (Scale 4 to 6) Alprazolam 1 mg 03/08/23 16:17 03/08/23 17:19 Alprazolam 1 Mg Tab PO 1 mg BID PRN Administration Anxiety Atorvastatin Calcium 40 mg 03/08/23 21:00 03/08/23 21:00 Atorvastatin 40 Mg Tab PO 40 mg HS MARIBEL Administration Morphine Sulfate 4 mg 03/08/23 13:26 Morphine Sulfate 4 Mg/Ml Syringe IV Q4HR PRN Severe Pain (Scale 7 to 10) Naloxone HCl 0.2 mg 03/08/23 13:26 Naloxone 0.4 Mg/Ml 1 Ml Vial IV Q2M PRN Opioid Reversal Intake and Output 03/08/23 03/09/23 03/09/23 22:59 06:59 14:59 Other: # Voids 1 2 Weight 81.647 kg 03/08/23 12:16 03/08/23 12:16
[2023-03-09] MEDS ORDERED: MAG HYDROX/AL HYDROX/SIMETH 30 ML, HYOSCYAMINE ELIXIR 10 ML, LIDOCAINE VISCOUS 10 ML PO ONE ×3 (11:15)
--- NOTE | 2023-03-09 11:40 | P.DS ---
Providers Date of admission: 03/08/23 13:22 Expected date of discharge: 03/09/23 Attending physician: Luis F Rosario MD Consults: 03/08/23 13:26 Consult Physician Stat Consulting Provider: Misael Sanchez Consult Reason/Comments: chest pain Do you want consulting provider notified?: Yes Primary care physician: Stated None Hospital Course: Discharge Diagnosis: Chest pain, acute coronary event ruled out. Chest pain believed to be secondary to gastroesophageal reflux. Patient discharged home on Protonix 40 mg daily Hypertension, patient discharged home on losartan 25 mg nightly. Patient encouraged to monitor blood pressures twice daily at home and document findings and daily log to bring with him to his next appointment with [facility] on 03/24/23. Hyperlipidemia GERD Testicular cancer Anxiety, patient discharged home in hydroxyzine 25 mg 3 times daily as needed for anxiety. Hospital Course: Patient is a pleasant 47-year-old male with a past medical history of hypertension, hyperlipidemia, GERD, testicular cancer, and anxiety. He presented to the emergency department with a chief complaint of chest pain. Patient reported intermittent chest pain 1 week described as a midsternal pressure-like pain radiating into his back. He denied having any associated symptoms including headache, lightheadedness, dizziness, diaphoresis, palpitations, shortness of breath, exertional dyspnea, cough or congestion, nausea or vomiting, abdominal pain, or experiencing any numbness/tingling/weakness/swelling in his extremities. And on full evaluation in the emergency department. EKG completed showing normal sinus rhythm at 82 bpm with no noted T-wave or ST abnormalities upon personal review and interpretation. Chest x-ray completed in radiology report reviewed negative for acute cardiopulmonary process. Labs completed and reviewed. CBC, coags, and CMP were unremarkable. D-dimer was negative at 0.20. Troponin was negative at less than 0.012. Patient was admitted under our services with consultation to cardiology. Troponins were trended overnight all negative at less than 0.0123 draws. Repeat EKG completed showing normal sinus rhythm at 62 bpm I again with no noted T-wave or ST abnormalities showing no signs of acute ischemia upon personal review and interpretation. Patient was evaluated by cardiology and cleared for outpatient follow-up with our office. 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 Medically, patient is stable at this time. Patient currently free from chest pain or discomfort. Patient reports pain improved after administration of GI cocktail. Patient being discharged home on losartan 25 mg nightly, hydroxyzine 25 mg 3 times daily as needed for anxiety, and Protonix 40 mg daily with breakfast. Patient encouraged to continue atorvastatin 40 mg nightly and to follow up outpatient with PCP in 1-2 days and cardiology in 2 weeks. Physical exam: Patient seen and examined at bedside. Vital signs reviewed and stable. General: Nontoxic, no distress and appears stated age. Derm: Skin warm and dry, normal coloration for ethnicity. Head: Atraumatic, normocephalic and symmetric. Eyes: EOMs intact, no lid lag, and anicteric sclera Mouth: no lip lesions, mucus membranes moist Cardiovascular: regular rate and rhythm with normal S1S2, no murmur, positive posterior tibial pulses bilaterally, and cap refill < 2 seconds. Lungs: Respirations even, regular, and unlabored on room air. Lungs CTA bilaterally, no rhonchi, no rales, no wheezing, and no accessory muscle usage. Abdominal: soft, nontender to palpation, no guarding, no appreciable organomegaly Ext: ROM intact. No gross muscle atrophy, no edema, no contractures Neuro: Speech clear, face symmetrical and CN II-XII grossly intact with no noted focal neuro deficits Psych: Alert and oriented to person, place, time, and situation. Appropriate and pleasant affect. A total of 35 minutes of time were spent preparing this complex discharge summary. Pt was discharged on 03/09/23 11:38 AM. Patient was seen independently by Nurse Practitioner. This document was prepared using [employer] dictation software. 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 Randy Sood NP rendered care for this patient independently, reviewed the findings and plan as documented in the note above. I did not physically speak with or examine the patient on this date. Patient Condition at Discharge: Stable Plan - Discharge Summary Discharge Rx Participant: No New Discharge Prescriptions: New Losartan [Cozaar] 25 mg PO HS 30 Days #30 tab hydrOXYzine HCL [Atarax] 25 mg PO TID PRN #60 tab PRN Reason: Anxiety Pantoprazole [Protonix] 40 mg PO AC-BRKFST 30 Days #30 tab Continue Atorvastatin [Lipitor] 40 mg PO HS Discharge Medication List Atorvastatin [Lipitor] 40 mg PO HS 03/08/23 [History] Losartan [Cozaar] 25 mg PO HS 30 Days #30 tab 03/09/23 [Rx] Pantoprazole [Protonix] 40 mg PO AC-BRKFST 30 Days #30 tab 03/09/23 [Rx] hydrOXYzine HCL [Atarax] 25 mg PO TID PRN #60 tab 03/09/23 [Rx] Follow up Appointment(s)/Referral(s): Misael Sanchez MD [STAFF PHYSICIAN] - 03/24/23 3:00 pm Jimmy Bonilla MD [STAFF PHYSICIAN] - 1 Week Patient Instructions/Handouts: Chest Pain (DC), Anxiety (GEN) Activity/Diet/Wound Care/Special Instructions: Activity: As tolerated. Take breaks as needed. Diet: Heart healthy and carb consistent diet. Avoid salts, or foods with hidden salts such as canned or boxed foods and frozen dinners. Extra salt makes your heart w ork harder and traps the fluid in your body for longer. Special Instructions: Take all of your medications as directed and remember to keep all of your do ctor's appointments and follow-up as needed. As we discussed, please monitor your blood pressure at home twice daily and document these findings in a daily log to bring with you to your follow-up a ppointment with cardiology. Thank you for allowing us to participate in your care, it was truly a pleasure having you for our patient!!! Discharge Disposition: HOME SELF-CARE
[2023-03-09] MEDS ORDERED: LOSARTAN 25 MG TAB PO SCH (21:00)
[2023-03-10] MEDS ORDERED: PANTOPRAZOLE 40 MG TABLET PO SCH (07:30)
== END 2023-03-09 12:36 | disposition home or self-care (01) ==
LOC: EC 11:40 → 6NMEDSUR 13:22
PROVIDERS: ADMIT Family Medicine; ATTEND Family Medicine
DX: R07.89 Other chest pain (principal); K21.9 Gastro-esophageal reflux disease without esophagitis; E78.5 Hyperlipidemia, unspecified; F41.9 Anxiety disorder, unspecified; I10 Essential (primary) hypertension; Z85.47 Personal history of malignant neoplasm of testis; Z90.79 Acquired absence of other genital organ(s); Z79.899 Other long term (current) drug therapy; Z82.49 Family history of ischemic heart disease and other diseases of the circulatory system
CPT/HCPCS: 99285; 36415; 94760; 93005; 85379; 80053; 83735; 84484; 85025; 85610; 85730; 71046; G0378 ×2

== ENCOUNTER → 2023-05-22 | Outpatient (CLI) | payer OTHER ==
[2023-05-22 14:14] LABS: ALT 31 U/L (10-49); AST 26 U/L (14-35); Chol/HDL Ratio 2.81 Ratio; LDL Cholesterol,Calculated 74.4 mg/dL (0.0-131.0); VLDL Calculation 11.88 mg/dL (5.00-40.00)
== END | disposition home or self-care (01) ==
LOC: LABWHC1 09:21
PROVIDERS: ATTEND Internal Medicine Interventional Cardiology
DX: E78.2 Mixed hyperlipidemia (principal)
CPT/HCPCS: 36415; 80061; 84450; 84460

== ENCOUNTER → 2024-07-27 | Outpatient (CLI) | payer OTHER ==
[2024-07-27 16:14] LABS: ALT 25 U/L (10-49); AST 19 U/L (14-35); Chol/HDL Ratio 3.11 Ratio; LDL Cholesterol,Calculated 108.2 mg/dL (0.0-131.0)
== END | disposition home or self-care (01) ==
LOC: LABWHC1 11:19
PROVIDERS: ATTEND Internal Medicine Interventional Cardiology
DX: E78.2 Mixed hyperlipidemia (principal)
CPT/HCPCS: 36415; 80061; 84450; 84460